=== PATIENT | male | born 1955 | race Caucasian/White ===

== ENCOUNTER 2019-08-01 09:17 | Emergency (ER) | payer MEDICARE ==
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
--- OUTSIDE RECORDS SUMMARY | 2019-08-01 09:27 | XMS REPORT | Summary of Care ---
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 Jew Admit Date: 06/22/2019 Referrals: Referral From: Rounding On Unit Referral To: Mariam Marie Contact Information: None Spiritual Care Assessment Spouse/Significant Other Name/Relationship: None Assessed Need for Visit: Spiritual Companionship Patient Description: Calm, Accepting, At Peace, Hope-filled Spiritual/Cultural/Social Issues Assessment: Had a good conversation with Etienne. He was sitting up smiling and in good spirits. He said that the staff is taking good care of him and he's doing well. Told him he's in good hands here, he agreed. Etienne talked a lot about his who has passed on. Talked about her life, meeting her and the time they spent together. He really misses her a lot. Can't imagine how difficult it must be.Told him she's right here in his heart and always with him. His personal Guardian Castillo looking over him and he agreed. He said he feels her everyday. When he has a free moment reach out in prayer and give thanks to God for his presence as well as the blessing of her presence. He said he prays everyday and is thankful. Said a prayer and a blessing. He was thankful for our visit. Spiritual Care Intervention: [facility], Explore/Affirm [place], Identify/ Encourage Coping, Prayer, Provide Ministry of Presence, Supportive Listening Spiritual Outcomes - Patient: Expressed feelings, [place] comforted, accompanied, [place] heard, valued, affirmed, Pastoral relationship established Spiritual Outcomes - Family: Not available for assessment Spiritual Care Plan Goal Goal: Identify and support relationship with [facility]. Outcome: Spiritual Care Follow Up Follow Up: Routine visit Rachel Blair , PT - 06/29/2019 9:28 AM ESTPhysical Therapy Acute Care Treatment Note Medical Diagnosis: Syncope Diabetic ulcer of toe of right foot associated with type 2 diabetes mellitus ? OSTEOMYELITIS RIGHT 3RD TOE Osteomyelitis of ankle or foot, right, acute Procedure(s): 06/25 AMPUTATION RIGHT THIRD TOE Rehabilitation Precautions/Restrictions: Ambulate with assist. Weight bearing as tolerated with forefoot off-loading shoe. Goal Review Visit Number: 3 SUBJECTIVE Patient Report: Reports he is feeling "fine." Pain: Patient has no complaints of pain currently. Pain Medication Today: no. OBJECTIVE General Observation: sitting up at edge of bed Vital Signs: Stable. Range of Motion:No change observed. Strength:No change observed. Skin Integrity Screen: Post surgical jf wrapping on RLE, toe amputation.,PIV ventral surface of L forearm Functional Status: Transfers: Patient transferred sit to/from stand with independence. Bed Mobility: Not assessed. Locomotion/Wheelchair: Not applicable for this patient at this time. Locomotion/Gait/Ambulation: Patient was modified independent with gait/ambulation for 180 feet . Patient requires the following assistive device(s): Rolling walker. R forefoot relief shoe . Gait belt. steady gait, slow tim Stairs: Patient was modified independent for up/down 5 steps . Patient used the following equipment: Unilateral Railing. Axillary Crutches. step to gait pattern Patient also was modified independent for up/down 5 steps . Patient used the following equipment: Unilateral Railing. facing railing with both hands on R ascending railing, step to gait pattern Outcome Measures: [facility] "6 Clicks" Basic Mobility Inpatient Short Form: Turning over in bed: A little difficulty (3) Sitting down on and standing up from a chair with arms: No difficulty (4) Moving from lying on back to sitting on the side of the bed: No difficulty (4) Moving to and from a bed to a chair (including a wheelchair): No help (4) Walking in hospital room: No help (4) Climbing 3-5 steps with a railing: A little help (3) Raw Score 22 /24. Interventions: Gait Training: Assesment for independence on level surfaces with wheeled walker and stair climbing. Instruction on using crutch and railing and then using both hands on one railing only to go up/down steps. Patient prefers to use one railing with both hands to using crutch and railing, flet it was easier. He will have someone that will help him into the home and bring his walker up. Education: Mode of education provided: Explanation. Audience: Patient. Education Provided: safe mobility including pausing between position changes, pacing himself when he first go es home, using light when getting up at night, keeping pathways free of clutter, having someone assist him into house to carry his walker up. . Response: Verbalized understanding. ASSESSMENT Response to Visit: The session was tolerated well. Demonstrated independence on stairs with rail. Patient demonstrated independent ambulation on level surfaces. Call ahmadi was in patient's reach at end of session. Pain: Patient has no complaints of pain currently. Goal review: Short Term Goals: 1. In 1 week, pt will perform supine to sit with independence. Status: met 2. In 1 week, pt will perform all functional transfers with modified independence and least restrictive device. Status: met Bicycle Racer Goals: 1. In 2 weeks, pt will be able to ambulate 150 feet with modified independence and least restrictive device. Status: met, ambulating with modified independent with wheeled walker and forefoot relief shoe 2. In 2 weeks, pt will perform 5 stairs with modified independence and least restrictive device. Status: met, modified independent going up/down steps with one railing Changes in or Continuation of Plan of Care: No further Physical Therapy is warranted at this time. Goals have been MET. PLAN Treatment Frequency, Duration and Interventions: Physical Therapy services are discontinued at this time secondary to: Goals have been MET. Equipment Provided: None issued this visit. Equipment Recommended: Rolling walker. Recommended Physical Therapy Follow Up: Upon acute care discharge, the following is currently recommended: None at this time. Recommended Consults: None currently. Development of Plan of Care: Participants included: Patient. Medical provider. Visit Number: Today's visit is number 3 Program: General Medicine (Therapist may be reached on Thuuz) SESSION: Duration: 18 CHARGES: 39985 - CHARGE - PT GAIT TRNG - 15 MIN 1 Units - GENERAL MEDICINE VISIT 1 Units Total treatment minutes: 18.00 Minutes Electronically Signed by: Rachel Vázquez PT, PT 06/29/2019 9:41:42 AM Ning Randle PA - 06/29/2019 9:11 AM EST Vascular Surgery Progress note POD: 4 Days Post-Op 06/29/19 Procedure: Procedure(s) (LRB): AMPUTATION RIGHT THIRD TOE (Right) Subjective: denies pain in the right foot. Feels well. Has walked with PT up and down stairs and with rolling walker and forefoot offloading shoe and doing well. No fever or chills. Tolerating antibiotics. Objective: Vital Sign Min/Max (last 24 hours) Value Min Max Temp 36.4 C (97.5 F) 36.8 C (98.2 F) Pulse (!) 52 (!) 58 Resp 18 18 BP: Systolic 99 146 BP: Diastolic 59 78 SpO2 94 % 99 % Intake/Output Summary (Last 24 hours) at 06/29/2019 0911 Last data filed at 06/29/2019 0826 Gross per 24 hour Intake 1556.53 ml Output 3500 ml Net -1943.47 ml Physical Exam: General: Pleasant, alert, awake, no acute distress Breathing unlabored Peripheral pulses: 2+ and symmetric Palpable pedal pulses bilaterally Feet: warm, good capillary refill. Right third toe amputation incision healing primarily with intact sutures and no erythema. Extremities: edema controlled by compression, no ulcers, gangrene or trophic changes and no tenderness or erythema. Active Problems: Syncope Diabetic ulcer of toe of right foot associated with type 2 diabetes mellitus Distal infected bone grew enterococcus and staphylococcus aureus- was treated 48 hours with Zyvox and Zosyn then the remaining 2 days on Zosyn alone. Bone pathology showed no osteomyelitis at the bonemargin and the proximal margin did not grow any bacteria. Assessment/Plan: 64 y.o. male, s/pProcedure(s): AMPUTATION RIGHT THIRD TOE Hospital Day: 8, 4 Days Post-Op Right third toe amputation healing primarily with no drainage. Lymphedema well controlled with the aces for compression. Medicine planning to discharge to home today with visiting nursing. Will follow up in 3 weeks for suture removal. Instructions for home and dressing change in the chart. Ning Madison RPA-C B - [phone] C- [phone] Department of Vascular Surgery Zeina Ambrosio PTA - 06/28/2019 3:55 PM ESTPhysical Therapy Acute Care Treatment Note Medical Diagnosis: Syncope Diabetic ulcer of toe of right foot associated with type 2 diabetes mellitus ? OSTEOMYELITIS RIGHT 3RD TOE Osteomyelitis of ankle or foot, right, acute Procedure(s): 06/25 AMPUTATION RIGHT THIRD TOE Rehabilitation Precautions/Restrictions: Ambulate with assist. Weight bearing as tolerated with forefoot off-loading shoe. Goal Review Visit Number: 2 SUBJECTIVE Patient Report: "I am doing good."; Pain: Patient has no complaints of pain currently. Pain Medication Today: no. OBJECTIVE General Observation: Sitting up in bedside recliner No chair alarm noted at start of session. Vital Signs: Stable. Range of Motion:No change observed. Strength:No change observed. Skin Integrity Screen: Post surgical jf wrapping on RLE, toe amputation. Functional Status: Transfers: Patient transferred sit to/from stand requiring stand by assistance. Patient used the following equipment: Arms of chair. Patient used the following equipment: rolling walker. Pt is able to come forward in the chair. Pt has forefoot offloading shoe on RLE. Pt is able to come to standing by pushing up from arms of chair. Bed Mobility: Not assessed. Locomotion/Wheelchair: Not applicable for this patient at this time. Locomotion/Gait/Ambulation: Patient was stand by assist with gait/ambulation for 200 ft . Patient requires the following assistive device(s): Rolling walker. Gait belt. RLE off loading shoe . Pt ambulates with rolling walker and R off loading shoe. Pt did not show signs of altered balance on level. Pt was able to ambulate in hallway in straight path and able to make turns. Pt reaches back for chair efore coming to sit. Right decreased step length. Wide base of support. Stairs: Patient was minimal assist of 1 person for 3 . Patient used the following equipment: Unilateral Railing. Axillary Crutches. Pt used RLE off loading shoe. Pt needs assist to posiition axillary crutch on L side. Pt follows cues for sequence in ascending and descending on stair. Pt uses R rail. Pt given cues to lead with LLE. Cues provided for keeping axillary crutch with RLE. Pt able to accomplish 3 stairs with contact to minimal assist of one person. Outcome Measures: Recently assessed, not applicable at this time. Interventions: Gait Training: Ambulation on level with RLE off loading shoe and rolling walker. Pt ambulates with wide base of support. Pt able to manage gait through doorway. Pt given cues for maneuvering around obstacles. Pt encouraged to take equal steps. Therapeutic Activities: Stair training with L axillary crutch, Pt requires cues for sequence on stairs. Pt used R railing. Pt backs down stair with cues. Pt was able to repeat tasks. Therapeutic Exercise: Seated hip flexion, knee extension and ankle pumps on LLE. Sit to stands. Education: Mode of education provided: Demonstration. Explanation. Audience: Patient. Nurse. Education Provided: Posture correction. Fall precautions. Response: Indicates understanding. Needs practice/reinforcement. Requires cues (auditory/physical). ASSESSMENT Response to Visit: The session was tolerated well. Pain unchanged. Demonstrated safety on stairs with rail with assist. Patient demonstrated good exercise technique. Call ahmadi was in patient's reach at end of session. Pain: Patient has no complaints of pain currently. Goal review: During this session, pt did not perform supine transfer. Pt performs functional transfers with contact guard. Pt accomplished 3 stairs x 2 trials. Changes in or Continuation of Plan of Care: Patient will benefit from continued therapy to achieve planned goals. PLAN Treatment Frequency, Duration and Interventions: Restorative Physical Therapy is recommended for 5x/week for 2 weeks Treatment is to include: Gait Training. Neuromuscular Re-education. Therapeutic Activity. Therapeutic Exercise. Equipment Provided: None issued this visit. Equipment Recommended: axillary crutch on L . Recommended Physical Therapy Follow Up: Upon acute care discharge, the following is currently recommended: pending progress Home Physical Therapy. home vs. rehab Recommended Consults: None currently. Development of Plan of Care: Participants included: Nurse. Patient. Visit Number: Today's visit is number 2 Program: Amputation (Therapist may be reached on Thuuz) SESSION: Duration: 40 CHARGES: 57345 - CHARGE - PT GAIT TRNG - 15 MIN 1 Units [id number] - CHARGE - PT THER EX - 15 MIN 1 Units 00063 - CHARGE - PT THERAPEUTIC ACTIVITIES - 15 MIN 1 Units - AMPUTEE VISIT 1 Units Total treatment minutes: 40.00 Minutes Electronically Signed by: Gabi Regalado MEDICAL ARTIST, 06/28/2019 4:05:39 PM Kevin Culver MD - 06/28/2019 9:30 AM EST DAILY PROGRESS NOTE SUBJECTIVE: No interval change in his condition. Is waiting for surgery to change bandage. Soc serv working on getting him home with sufficient help. Cultures came back showing Staph MSSA and enterococcus. Review of Systems Constitutional: Negative. Negative for chills and fever. Had iv site change overnite. Feels good HENT: Negative. Eyes: Negative. Respiratory: Negative. Negative for cough and shortness of breath. Cardiovascular: Negative. Negative for chest pain and leg swelling. Gastrointestinal: Negative. Negative for abdominal pain, constipation, diarrhea , nausea and vomiting. Genitourinary: Negative. Negative for dysuria. Musculoskeletal: Negative. Negative for myalgias. Skin: Negative. Neurological: Negative. Endo/Heme/Allergies: Negative. Psychiatric/Behavioral: Negative. OBJECTIVE: Vitals: 06/28/19 0433 06/28/19 0630 06/28/19 0700 06/28/19 0755 BP: 112/68 141/65 BP Location: Left arm Left arm Patient Position: Lying Lying Pulse: 77 (!) 57 64 Resp: 18 18 Temp: 36.8 C 36.7 C TempSrc: Oral Oral SpO2: 95% 96% Weight: 135.2 kg (298 lb 1 oz) Height: I/O last 3 completed shifts: In: 2825.8 [P.O.:2010; IV Piggyback:815.8] Out: 5375 [Urine:5375] I/O this shift: In: 535 [P.O.:535] Out: - No data recorded Physical Exam Constitutional: He is oriented to person, place, and time and well-developed, well-nourished, and inno distress. Cardiovascular: Normal rate, regular rhythm and intact distal pulses. Exam reveals no gallop and no friction rub. No murmur heard. Pulmonary/Chest: Effort normal and breath sounds normal. No respiratory distress. He has no wheezes. Abdominal: Soft. Bowel sounds are normal. Musculoskeletal: Normal range of motion. General: Edema (1+ pitting b/l LE ) present. Comments: Dressing RLE Neurological: He is alert and oriented to person, place, and time. Skin: Skin is warm and dry. Nursing note and vitals reviewed. LABS: Recent Labs Lab 06/22/19 0701 HCT 36.3* HGB 12.6* MCH 31.0 MCHC 34.6 MCV 89.7 PLT 244 RDW 13.4 WBC 7.5 Recent Labs Lab 06/24/19 1239 06/25/19 0600 06/26/19 0427 NA 133* 137 137 K 4.2 3.7 4.3 CL 94* 98 100 BICARBONATE 29 27 31* GLUCOSE 191* 169* 164* BUN 20 23 19 CREATININE 0.82 0.80 0.88 BCR 25 28 22 GFRAA >90 >90 >90 GFRNONAA >90 >90 90 Lab Results Component Value Date CALCIUM 9.2 06/26/2019 PHOS 2.7 04/08/2016 MEDICATIONS: Scheduled Meds: aspirin 81 mg Oral Daily atorvastatin 10 mg Oral QPM enoxaparin 40 mg Subcutaneous Daily furosemide 40 mg Oral BID gabapentin 300 mg Oral TID insulin lispro 1-16 Units Subcutaneous 3 x Daily with Meals insulin NPH-insulin regular 40 Units Subcutaneous Two times daily before breakfast and dinner linezolid 600 mg Intravenous Q12H metoprolol 75 mg Oral Daily piperacillin-tazobactam 3.375 g Intravenous Q8H polyethylene glycol 17 g Oral Daily rOPINIRole 1 mg Oral Nightly Continuous Infusions: PRN Meds:.HYDROcodone-acetaminophen OR HYDROcodone-acetaminophen OR acetaminophen (TYLENOL) tablet, dextrose, glucagon (human recombinant), glucose ASSESSMENT: Mr. Etienne Ramachandran is a 64 y.o. year old male who is here for Active Problems: Syncope Diabetic ulcer of toe of right foot associated with type 2 diabetes mellitus PLAN Syncope Likely due to cardiac arrhythmia, but pt adement: no defibrillator or vest! Acute on chronic diastolic CHF -worsening swelling past couple of days, takes lasix 80 mg po daily at home -diuresed IV initially. Resume home dosing now. -2d echo with LV hypertrophy, no RWMA. CXR with congestion -HF education, daily weights, low na diet Monomorphic ventricular tachycardia -Noted on tele, 19 beat run woke him from sleep, history of a cardiac arrhythmia that states has never been DX on holter. Mag and K wnl, TSH wnl. -Cardiology consulted, patient is high risk for sudden cardiac as he has had these episodes for years, pre-syncope. -Cardiology would like for him to have LifeFest prior to DC, and eventual follow up with EP and possible ICD. -Metoprolol increased to 75 mg po daily. Patient is currently refusing LifeVest and ICD. He understands the recommendations and possibility of sudden cardiac if he does not have these, but continues to refuse. He wants to be full code. Restless leg syndrome -recently ran out of requip. Continue here and on DC, will need refills. 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 Chronic right third toe osteo, s/p amputation -Follows with wound clinic. Ill d/c Zyvoxx as culture shows MSSA STAPH. Above assessment and plan discussed with attending below. DVT Prophylaxis: low molecular weight heparin GI Prophylaxis:Not Indicated Diet: Dietary Orders (From admission, onward) Start Ordered 06/25/19 0932 Diet Age: Adult; Diet: Modified; Modifier: Consistent Carbohydrate; Consistent Carbohydrate: Adult-Moderate DIET EFFECTIVE MIDNIGHT Question Answer Comment Age Adult Diet Modified Modifier Consistent Carbohydrate Consistent Carbohydrate Adult-Moderate 06/25/19 0931 Code status: Full Code Estimated date of discharge: 6 TIME SPENT: 20 min Hospital Medicine [facility] 06/28/2019 9:31 AM Kevin Mello MD Kevin Culver MD - 06/27/2019 10:03 AM EST DAILY PROGRESS NOTE SUBJECTIVE: Doing ok some minimal pain, but needs help taking care of foot on a daily bases.. Review of Systems Constitutional: Negative. Negative for chills and fever. Feels good overall, but is worried about care after d/c HENT: Negative. Eyes: Negative. Respiratory: Negative. Negative for cough and shortness of breath. Cardiovascular: Negative. Negative for chest pain and leg swelling. Gastrointestinal: Negative. Negative for abdominal pain, constipation, diarrhea , nausea and vomiting. Genitourinary: Negative. Negative for dysuria. Musculoskeletal: Negative. Negative for myalgias. Skin: Negative. Neurological: Negative. Endo/Heme/Allergies: Negative. Psychiatric/Behavioral: Negative. OBJECTIVE: Vitals: 06/27/19 0009 06/27/19 0700 06/27/19 0733 06/27/19 0811 BP: 135/72 103/58 113/66 BP Location: Left arm Right arm Patient Position: Sitting Lying Pulse: 61 (!) 52 62 Resp: 17 16 Temp: 36.5 C 36.3 C TempSrc: Oral Oral SpO2: 95% 92% Weight: 134 kg (295 lb 8 oz) Height: I/O last 3 completed shifts: In: 900 [P.O.:900] Out: 1575 [Urine:1575] I/O this shift: In: 540 [P.O.:540] Out: - No data recorded Physical Exam Constitutional: He is oriented to person, place, and time and well-developed, well-nourished, and inno distress. Cardiovascular: Normal rate, regular rhythm and intact distal pulses. Exam reveals no gallop and no friction rub. No murmur heard. Pulmonary/Chest: Effort normal and breath sounds normal. No respiratory distress. He has no wheezes. Abdominal: Soft. Bowel sounds are normal. Musculoskeletal: Normal range of motion. General: Edema (1+ pitting b/l LE ) present. Comments: Dressing RLE Neurological: He is alert and oriented to person, place, and time. Skin: Skin is warm and dry. Nursing note and vitals reviewed. LABS: Recent Labs Lab 06/22/19 0701 HCT 36.3* HGB 12.6* MCH 31.0 MCHC 34.6 MCV 89.7 PLT 244 RDW 13.4 WBC 7.5 Recent Labs Lab 06/24/19 1239 06/25/19 0600 06/26/19 0427 NA 133* 137 137 K 4.2 3.7 4.3 CL 94* 98 100 BICARBONATE 29 27 31* GLUCOSE 191* 169* 164* BUN 20 23 19 CREATININE 0.82 0.80 0.88 BCR 25 28 22 GFRAA >90 >90 >90 GFRNONAA >90 >90 90 Lab Results Component Value Date CALCIUM 9.2 06/26/2019 PHOS 2.7 04/08/2016 MEDICATIONS: Scheduled Meds: aspirin 81 mg Oral Daily atorvastatin 10 mg Oral QPM enoxaparin 40 mg Subcutaneous Daily furosemide 40 mg Oral BID gabapentin 300 mg Oral TID insulin lispro 1-16 Units Subcutaneous 3 x Daily with Meals insulin NPH-insulin regular 40 Units Subcutaneous Two times daily before breakfast and dinner linezolid 600 mg Intravenous Q12H metoprolol 75 mg Oral Daily piperacillin-tazobactam 3.375 g Intravenous Q8H polyethylene glycol 17 g Oral Daily rOPINIRole 1 mg Oral Nightly Continuous Infusions: PRN Meds:.HYDROcodone-acetaminophen OR HYDROcodone-acetaminophen OR acetaminophen (TYLENOL) tablet, dextrose, glucagon (human recombinant), glucose ASSESSMENT: Mr. Etienne Ramachandran is a 64 y.o. year old male who is here for Active Problems: Syncope Diabetic ulcer of toe of right foot associated with type 2 diabetes mellitus PLAN Syncope Likely due to cardiac arrhythmia, but pt adement: no defibrillator or vest! Acute on chronic diastolic CHF -worsening swelling past couple of days, takes lasix 80 mg po daily at home -diuresed IV initially. Resume home dosing now. -2d echo with LV hypertrophy, no RWMA. CXR with congestion -HF education, daily weights, low na diet Monomorphic ventricular tachycardia -Noted on tele, 19 beat run woke him from sleep, history of a cardiac arrhythmia that states has never been DX on holter. Mag and K wnl, TSH wnl. -Cardiology consulted, patient is high risk for sudden cardiac as he has had these episodes for years, pre-syncope. -Cardiology would like for him to have LifeFest prior to DC, and eventual follow up with EP and possible ICD. -Metoprolol increased to 75 mg po daily. Patient is currently refusing LifeVest and ICD. He understands the recommendations and possibility of sudden cardiac if he does not have these, but continues to refuse. He wants to be full code. Restless leg syndrome -recently ran out of requip. Continue here and on DC, will need refills. DM 2 with intermediate insulin use -Continue NPH and SS. Chronic right third toe osteo, s/p amputation -Follows with wound clinic. Chronic osteo in the toe, has failed 3 OP ABX regimens. Saw ID last week, recommended IV ertapenem x 6 weeks but not covered so patient is not getting tx. -Right 3rd toe amp 06/25. Ambulate with PT with boot on . Initially patient did not want to wait for pathology and we sent in Linezolid x 7 days pending pathology to return. Copay is $3 incase he does leave. Worked with PT today and they are recommending home vs rehab pending progress. Will continue with PT here , pending pathology before DC. Will need follow up with Vasc on DC. Continue Zyvox and Zosyn for now. Above assessment and plan discussed with attending below. DVT Prophylaxis: low molecular weight heparin GI Prophylaxis:Not Indicated Diet: Dietary Orders (From admission, onward) Start Ordered 06/25/19 0932 Diet Age: Adult; Diet: Modified; Modifier: Consistent Carbohydrate; Consistent Carbohydrate: Adult-Moderate DIET EFFECTIVE MIDNIGHT Question Answer Comment Age Adult Diet Modified Modifier Consistent Carbohydrate Consistent Carbohydrate Adult-Moderate 06/25/19 0931 Code status: Full Code Estimated date of discharge: 5 TIME SPENT: 20 min Hospital Medicine [facility] 06/27/2019 10:03 AM Kevin Mello MD Daisy Tidwell RN - 06/26/2019 3:22 PM ESTPatient discussed in rounds, reviewed updates. Patient had his toe amp yesterday. He has off-loading boot and has worked with PT. Still needs to work on stairs, but will likely be able to DC with HomePT. He will also need SN. Per Ning[facility], dressing will be able to be changed every other day. Patient would like [facility], and they will be able to accommodate the dressing changes,as well as the PT. Will put order in Epic. chu, HALEIGH Escobedo - 06/26/2019 3:05 PM EST DAILY PROGRESS NOTE SUBJECTIVE: Pt seen and examined at bedside today. No pain today. No other complaints. Was initially eager to leave prior to pathologies returning but now worried about physical therapy and his mobility. Review of Systems Constitutional: Negative for chills and fever. Respiratory: Negative for cough and shortness of breath. Cardiovascular: Negative for chest pain and leg swelling. Gastrointestinal: Negative for abdominal pain, constipation, diarrhea, nausea and vomiting. Genitourinary: Negative for dysuria. Musculoskeletal: Negative for myalgias. OBJECTIVE: Vitals: 06/26/19 0600 06/26/19 0725 06/26/19 1043 06/26/19 1129 BP: 118/75 134/80 118/74 BP Location: Left arm Left arm Patient Position: Sitting Lying Pulse: (!) 57 60 (!) 56 Resp: 16 16 Temp: 36.3 C 36.3 C TempSrc: Oral Oral SpO2: 96% 96% Weight: 134.3 kg (296 lb 2 oz) Height: I/O last 3 completed shifts: In: 1730 [P.O.:1680; IV Piggyback:50] Out: 2375 [Urine:2375] No intake/output data recorded. No data recorded Physical Exam Constitutional: He is oriented to person, place, and time and well-developed, well-nourished, and inno distress. Cardiovascular: Normal rate, regular rhythm and intact distal pulses. Exam reveals no gallop and no friction rub. No murmur heard. Pulmonary/Chest: Effort normal and breath sounds normal. No respiratory distress. He has no wheezes. Abdominal: Soft. Bowel sounds are normal. Musculoskeletal: Normal range of motion. General: Edema (1+ pitting b/l LE ) present. Comments: Dressing RLE Neurological: He is alert and oriented to person, place, and time. Skin: Skin is warm and dry. LABS: Recent Labs Lab 06/22/19 0701 HCT 36.3* HGB 12.6* MCH 31.0 MCHC 34.6 MCV 89.7 PLT 244 RDW 13.4 WBC 7.5 Recent Labs Lab 06/24/19 1239 06/25/19 0600 06/26/19 0427 NA 133* 137 137 K 4.2 3.7 4.3 CL 94* 98 100 BICARBONATE 29 27 31* GLUCOSE 191* 169* 164* BUN 20 23 19 CREATININE 0.82 0.80 0.88 BCR 25 28 22 GFRAA >90 >90 >90 GFRNONAA >90 >90 90 Lab Results Component Value Date CALCIUM 9.2 06/26/2019 PHOS 2.7 04/08/2016 MEDICATIONS: Scheduled Meds: aspirin 81 mg Oral Daily atorvastatin 10 mg Oral QPM enoxaparin 40 mg Subcutaneous Daily furosemide 40 mg Oral BID gabapentin 300 mg Oral TID insulin lispro 1-16 Units Subcutaneous 3 x Daily with Meals insulin NPH-insulin regular 40 Units Subcutaneous Two times daily before breakfast and dinner linezolid 600 mg Intravenous Q12H metoprolol 75 mg Oral Daily piperacillin-tazobactam 3.375 g Intravenous Q8H polyethylene glycol 17 g Oral Daily rOPINIRole 1 mg Oral Nightly Continuous Infusions: PRN Meds:.HYDROcodone-acetaminophen OR HYDROcodone-acetaminophen OR acetaminophen (TYLENOL) tablet, dextrose, glucagon (human recombinant), glucose ASSESSMENT: Mr. Etienne Ramachandran is a 64 y.o. year old male who is here for Active Problems: Syncope Diabetic ulcer of toe of right foot associated with type 2 diabetes mellitus PLAN Syncope -Syncopal episode Saturday night, started OTC restless leg med 2-3 days prior, had been feeling lightheaded/whoozy since, leading to syncopal episode -Carotid doppler neg. 2D echo with diastolic dysfunction, no RWMA. Orthostatics neg. -Cardiology consulted for pt with symptomatic VT, history of arrythmias. Recommending life vest and possible ICD and EP follow up as OP, after toe amp. Patient is refusing these interventions. Wantsto remain full code. Acute on chronic diastolic CHF -worsening swelling past couple of days, takes lasix 80 mg po daily at home -diuresed IV initially. Resume home dosing now. -2d echo with LV hypertrophy, no RWMA. CXR with congestion -HF education, daily weights, low na diet Monomorphic ventricular tachycardia -Noted on tele, 19 beat run woke him from sleep, history of a cardiac arrhythmia that states has never been DX on holter. Mag and K wnl, TSH wnl. -Cardiology consulted, patient is high risk for sudden cardiac as he has had these episodes for years, pre-syncope. -Cardiology would like for him to have LifeFest prior to DC, and eventual follow up with EP and possible ICD. -Metoprolol increased to 75 mg po daily. Patient is currently refusing LifeVest and ICD. He understands the recommendations and possibility of sudden cardiac if he does not have these, but continues to refuse. He wants to be full code. Restless leg syndrome -recently ran out of requip. Continue here and on DC, will need refills. DM 2 with intermediate insulin use -Continue NPH and SS. Chronic right third toe osteo, s/p amputation -Follows with wound clinic. Chronic osteo in the toe, has failed 3 OP ABX regimens. Saw ID last week, recommended IV ertapenem x 6 weeks but not covered so patient is not getting tx. -Right 3rd toe amp 06/25. Ambulate with PT with boot on . Initially patient did not want to wait for pathology and we sent in Linezolid x 7 days pending pathology to return. Copay is $3 incase he does leave. Worked with PT today and they are recommending home vs rehab pending progress. Will continue with PT here , pending pathology before DC. Will need follow up with Vasc on DC. Continue Zyvox and Zosyn for now. Above assessment and plan discussed with attending below. DVT Prophylaxis: low molecular weight heparin GI Prophylaxis:Not Indicated Diet: Dietary Orders (From admission, onward) Start Ordered 06/25/19 0932 Diet Age: Adult; Diet: Modified; Modifier: Consistent Carbohydrate; Consistent Carbohydrate: Adult-Moderate DIET EFFECTIVE MIDNIGHT Question Answer Comment Age Adult Diet Modified Modifier Consistent Carbohydrate Consistent Carbohydrate Adult-Moderate 06/25/19 0931 Code status: Full Code Estimated date of discharge: 4 TIME SPENT: 20 min Some portions of note may be copied from previous note during this admission for continuity of patient care. Details reviewed and edited as appropriate. ~~~ Shania Urena PA-C [facility] 06/26/2019 3:05 PM Kevin Mello MD Associated attestation - Kevin Mello MD - 06/26/2019 4:55 PM CRISTINA saw and evaluated the patient and discussed the history, physical exam, assessment and plan with the physician mobile phone salesperson and agree with the findings and plan as documented in the note above with any additions made noted here: Did not feel he was ready to be by himself. Total time:25 min Kevin Mello MD Hospitalist [facility] Ning Madison PA - 06/26/2019 11:44 AM EST Vascular Surgery Progress note POD: 1 Day Post-Op 06/26/19 Procedure: Procedure(s) (LRB): AMPUTATION RIGHT THIRD TOE (Right) Subjective: States he feels well, tolerating antibiotics without SE. Denies pain in the right foot. Has not been up on the forefoot offloading shoe yet with physical therapy. Denies chest pain shortness of breath, abdominal pain, nausea or vomiting. Objective: Vital Sign Min/Max (last 24 hours) Value Min Max Temp 36.3 C (97.3 F) 36.7 C (98.1 F) Pulse (!) 54 67 Resp 16 17 BP: Systolic 112 143 BP: Diastolic 64 80 SpO2 91 % 99 % Intake/Output Summary (Last 24 hours) at 06/26/2019 1144 Last data filed at 06/26/2019 0900 Gross per 24 hour Intake 1730 ml Output 2350 ml Net -620 ml Afebrile Physical Exam: General: alert, awake, no acute distress, anxious and irritable. Appropriately answers questions, Lungs: breathing unlabored Peripheral pulses: 2+ and symmetric pedal pulses palpable Feet: warm, good capillary refill, dry cracking heels, onychomycosis and right third toe amputatation incison healing primarily. Sutures intact without drainage. Extremities: no edema edema 1+ bilaterally, dry scaling skin, and extremities normal, atraumatic, no cyanosis Lab Results Component Value Date WBC 7.5 06/22/2019 HGB 12.6 (L) 06/22/2019 HCT 36.3 (L) 06/22/2019 MCV 89.7 06/22/2019 PLT 244 06/22/2019 Active Problems: Syncope Diabetic ulcer of toe of right foot associated with type 2 diabetes mellitus Assessment/Plan: 64 y.o. male, s/pProcedure(s): AMPUTATION RIGHT THIRD TOE Hospital Day: 5, Day 1 Post-Op Amputation incision healing appropriately. Edema controlled with compression and elevation. "infected distal toe bone culture" is the infected osteomyelitis bone for the purpose of antibiotic selection. The infected bone is growing E coli and Staph aureus but sensitivities are pending. Proximal bone culture and bone pathology pending but no growth. Needs to ambulate with PT and will need a visiting nurse because he cannot reach the foot to do any dressing changes. follow up appointments made in the Epic chart and discharge instructions for home pended. Continue Zyvox and Zosyn. Proximal Bone pathology and proximal microbiology will need to be followed up for completion of treatment. Ning Madison RPA-C B - [phone] C- [phone] Department of Vascular Surgery Alena Wilson RN - 06/25/2019 10:19 PM ESTAssumed care of pt from [phone], read and agree with previous resistor coater, no changes noted. Pt resting in bed with foot elevated on 3 pillows, and call ahmadi in reach at this time. Will continue tomonitor. Shania Rocha PA - 06/25/2019 11:55 AM EST DAILY PROGRESS NOTE SUBJECTIVE: Pt seen and examined at bedside today. No complaints today. No pain currently. Toe amp earlier this morning. Review of Systems Constitutional: Negative for chills and fever. Respiratory: Negative for cough and shortness of breath. Cardiovascular: Positive for leg swelling. Negative for chest pain. Gastrointestinal: Negative for abdominal pain, diarrhea, nausea and vomiting. Genitourinary: Negative for dysuria. Musculoskeletal: Negative for joint pain and myalgias. OBJECTIVE: Vitals: 06/25/19 0856 06/25/19 0900 06/25/19 0905 06/25/19 0910 BP: 108/70 115/65 115/60 114/73 BP Location: Right arm Right arm Patient Position: Lying Lying Pulse: 63 63 (!) 58 Resp: 16 14 13 15 Temp: 36.4 C 36.6 C TempSrc: Oral Oral SpO2: 99% 99% 95% 99% Weight: Height: I/O last 3 completed shifts: In: 600 [P.O.:600] Out: 1675 [Urine:1675] I/O this shift: In: 680 [P.O.:180; I.V.:500] Out: - O2 Flow Rate (L/min) Av L/min Min: 4 L/min Max: 4 L/min Physical Exam Constitutional: He is oriented to person, place, and time and well-developed, well-nourished, and inno distress. Cardiovascular: Normal rate and regular rhythm. Exam reveals no gallop and no friction rub. No murmur heard. Pulmonary/Chest: Effort normal and breath sounds normal. No respiratory distress. He has no wheezes.He has no rales. Abdominal: Soft. Bowel sounds are normal. He exhibits no distension. There is no abdominal tenderness. Musculoskeletal: Normal range of motion. General: Edema (1+ pitting b/l LE ) present. Neurological: He is alert and oriented to person, place, and time. Skin: Skin is warm and dry. Cast to E LABS: Recent Labs Lab 06/22/19 0701 HCT 36.3* HGB 12.6* MCH 31.0 MCHC 34.6 MCV 89.7 PLT 244 RDW 13.4 WBC 7.5 Recent Labs Lab 06/23/19 0815 06/24/19 1239 06/25/19 0600 NA 133* 133* 137 K 5.2* 4.2 3.7 CL 99 94* 98 BICARBONATE 22 29 27 GLUCOSE 151* 191* 169* BUN 19 20 23 CREATININE 0.67* 0.82 0.80 BCR 29 25 28 GFRAA >90 >90 >90 GFRNONAA >90 >90 >90 Lab Results Component Value Date CALCIUM 9.2 06/25/2019 PHOS 2.7 04/08/2016 MEDICATIONS: Scheduled Meds: aspirin 81 mg Oral Daily atorvastatin 10 mg Oral QPM enoxaparin 40 mg Subcutaneous Daily [START ON 06/26/2019] furosemide 60 mg Oral Daily gabapentin 300 mg Oral TID insulin lispro 1-8 Units Subcutaneous 3 x Daily with Meals insulin NPH-insulin regular 40 Units Subcutaneous Two times daily before breakfast and dinner linezolid 600 mg Intravenous Q12H metoprolol 75 mg Oral Daily piperacillin-tazobactam 3.375 g Intravenous Q8H [START ON 06/26/2019] polyethylene glycol 17 g Oral Daily rOPINIRole 1 mg Oral Nightly Continuous Infusions: PRN Meds:.HYDROcodone-acetaminophen OR HYDROcodone-acetaminophen OR acetaminophen (TYLENOL) tablet, dextrose, glucagon (human recombinant), glucose ASSESSMENT: Mr. Etienne Ramachandran is a 64 y.o. year old male who is here for Active Problems: Syncope Diabetic ulcer of toe of right foot associated with type 2 diabetes mellitus PLAN Syncope -Syncopal episode Saturday night, started OTC restless leg med 2-3 days prior, had been feeling lightheaded/whoozy since, leading to syncopal episode -Carotid doppler neg. 2D echo with diastolic dysfunction, no RWMA. Orthostatics neg. -Cardiology consulted for pt with symptomatic VT, history of arrythmias. Recommending life vest and possible ICD and EP follow up as OP, after toe amp. Acute on chronic diastolic CHF -worsening swelling past couple of days, takes lasix 80 mg po daily at home -diuresed IV initially. Resume home dosing now. -2d echo with LV hypertrophy, no RWMA. CXR with congestion -HF education, daily weights, low na diet Monomorphic ventricular tachycardia -Noted on tele, 19 beat run woke him from sleep, history of a cardiac arrhythmia that states has never been DX on holter. Mag and K wnl, TSH wnl. -Cardiology consulted, patient is high risk for sudden cardiac as he has had these episodes for years, pre-syncope. -Cardiology would like for him to have LifeFest prior to DC, and eventual follow up with EP and possible ICD. -Metoprolol increased to 75 mg po daily. Patient is currently refusing LifeVest and ICD. He understands the recommendations and possibility of sudden cardiac if he does not have these, but continues to refuse. Restless leg syndrome -recently ran out of requip. Continue here and on DC, will need refills. DM 2 with intermediate insulin use -Continue NPH and SS. Chronic right third toe osteo -Follows with wound clinic. Chronic osteo in the toe, has failed 3 OP ABX regimens. Saw ID last week, recommended IV ertapenem x 6 weeks but not covered so patient is not getting tx. -Right 3rd toe amp 06/25. Bedrest 24 hours. Ambulation starting Saturday, forefoot offloading shoe. Await bone culture and path. Start Zyvox and Zosyn. Above assessment and plan discussed with attending below. DVT Prophylaxis: low molecular weight heparin GI Prophylaxis:Not Indicated Diet: Dietary Orders (From admission, onward) Start Ordered 06/25/19 0932 Diet Age: Adult; Diet: Modified; Modifier: Consistent Carbohydrate; Consistent Carbohydrate: Adult-Moderate DIET EFFECTIVE MIDNIGHT Question Answer Comment Age Adult Diet Modified Modifier Consistent Carbohydrate Consistent Carbohydrate Adult-Moderate 06/25/19 0931 Code status: Full Code Estimated date of discharge: tbd 3 TIME SPENT: 20 min Some portions of note may be copied from previous note during this admission for continuity of patient care. Details reviewed and edited as appropriate. ~~~ Shania Urena PA-C [facility] Medicine [facility] 06/25/2019 11:55 AM Kevin Mello MD Associated attestation - Kevin Mello MD - 06/25/2019 12:37 PM CRISTINA saw and evaluated the patient and discussed the history, physical exam, assessment and plan with the physician mobile phone salesperson and agree with the findings and plan as documented in the note above with any additions made noted here: If he looks good tomorrow could be f/u as out-patient . He wants to go home and not be bothered. Total time: 25 min Kevin Mello MD Hospitalist [facility] Samm Morgan PT - 06/25/2019 9:15 AM ESTPhysical Therapy Acute Care Missed Visit Note Location: bedside Attempted to visit patient for therapy, but was unable for the following reasons: Patient went to OR. (Therapist may be reached on Vocera) SESSION: Duration: 0 CHARGES: - ORDER - PHYSICAL THERAPY CONSULT 1 Units Total treatment minutes: 0.00 Minutes Electronically Signed by: Samm Morgan PT, DPT, 06/25/2019 9:16:22 AM [email or web address], Can Rodney MD - 06/25/2019 7:43 AM EST64 yo man with R 3 toe tip osteo Plan R 3 toe amp with cultures Pt agreeable to toe amp Pt is being followed by Dr Norman who is guiding antibiotic therapy in this situation To OR today Risks of bleeding, infection, , ID, stroke, all discussed with patient in plain language. He is declining further non-operative/medical therapy Daisy Tidwell RN - 06/24/2019 4:07 PM ESTCase Management Screen & Assessment Patient's Name: Etienne Ramachandran Date of : 1955 Age: 64 y.o. Gender: male Attending Provider: Kevin Mello MD Admitting Diagnosis: Syncope [R55] Admission Date and Time: 06/22/2019 5:18 AM High Risk Criteria - MEDICAL ARTIST/Upon Arrival MEDICAL ARTIST-Type of Residence: Private residence MEDICAL ARTIST- Home Care Services: No Limited Home Supports/Lives Alone?: Yes Multi trauma/Critical care admit?: No Head/Spinal cord injury?: No Self pay/No prescription plan?: No Active with homecare?: No Multiple ED visits?: No Related/Unplanned readmission within 30 days?: No Complex/New medical issues: Syncope/Osteo of toe Relevant comorbidities: DM, toe wound, CHF, HTN, bovine valve CM Screen Outcome Utility Plant Operative Screen Outcome: Meets high risk criteria for active case therapist intervention Important message (Medicare rights) given?: Yes Date Given: 06/22/19 CM Chart Review Notice of Privacy Practice Signed?: Yes Self Pay: No Prescription Plan?: Yes (comment) Pt. Pharmacy & Phone # : [facility] MEDICAL ARTIST: Functional/Environmental Assessment Came from Rehab/SNF, plan to return?: No Brief physical/psychosocial summary: Lives alone Bathing: Independent Dressing: Independent Toileting: Independent Medication administration: Independent Transfers: Independent Ambulation: Independent Meal preparation: Independent Number of stairs into home: 5 Number of stairs to bathroom: 0 Number of stairs to bedroom: 0 Durable Medical Equipment (DME): Cane Case Management Review Date CM re-review date needed?: Yes Case Management Review Date: 06/29/19 Discharge Assessment Patient/family informed of need for discharge planning?: Yes Patient expects to be discharged to:: home vs rehab Living Arrangements: Alone Support Systems: Friends/neighbors Type of Residence: Private residence Note: Met with patient at bedside, explained role of CM. Patient admitted with syncope. He hd a toe wound MEDICAL ARTIST, and was found to have osteo. Vascular surgery is recommending amputation of that toe. Patient has been experiencing runs of v- tach while here in the monitor. Cardiology is recommending life vest and possible ICD and EP follow up as OP, after toe amp. At this time, he is refusing to go this course. He will have the toe surgery (scheduled for tomorrow am). Cardiology will continue to consultafter the toe surgery. Patient lives alone. His lived at [facility] for several years before she a year and ahalf ago. He states that he "lived there every day to help care for her". Discussed discharge plans,possible rehab, Homecare, etc. Will continue to follow for a safe DC plan. Rody Verdetronically signed by Daisy Verde RN at 06/24/2019 4:15 PM Shania Rocha PA - 06/24/2019 11:51 AM EST DAILY PROGRESS NOTE SUBJECTIVE: Pt seen and examined at bedside today. No new complaints. Patient upset this morning, stating he does not want life vest or implantable defib device. He thinks he has had these episodes for years and has never had an issue thus far, and does not want to "go through all of this". Review of Systems Constitutional: Negative for chills and fever. Respiratory: Negative for cough and shortness of breath. Cardiovascular: Positive for leg swelling (improving ). Negative for chest pain. Gastrointestinal: Negative for abdominal pain, constipation, diarrhea, nausea and vomiting. Genitourinary: Negative for dysuria, frequency and urgency. Musculoskeletal: Negative for joint pain and myalgias. OBJECTIVE: Vitals: 06/24/19 0944 06/24/19 1134 06/24/19 1135 06/24/19 1136 BP: 143/78 109/68 116/76 118/75 BP Location: Right arm Right arm Right arm Patient Position: Lying Standing Standing Pulse: 78 77 83 82 Resp: 17 17 17 Temp: 36.7 C TempSrc: Oral SpO2: 96% 94% 95% Weight: Height: No intake/output data recorded. No intake/output data recorded. No data recorded Physical Exam Constitutional: He is oriented to person, place, and time and well-developed, well-nourished, and inno distress. Neck: Normal range of motion. Cardiovascular: Normal rate, regular rhythm and intact distal pulses. Exam reveals no gallop and no friction rub. No murmur heard. Pulmonary/Chest: Effort normal and breath sounds normal. No respiratory distress. He has no wheezes.He has no rales. Abdominal: Bowel sounds are normal. He exhibits no distension. There is no abdominal tenderness. Musculoskeletal: Normal range of motion. General: Edema (trace pitting b/l LE, improving ) present. Neurological: He is alert and oriented to person, place, and time. Skin: Skin is warm and dry. Psychiatric: Affect normal. LABS: Recent Labs Lab 06/22/19 0701 HCT 36.3* HGB 12.6* MCH 31.0 MCHC 34.6 MCV 89.7 PLT 244 RDW 13.4 WBC 7.5 Recent Labs Lab 06/22/19 0701 06/22/19 1833 06/23/19 0815 NA 132* 133* 133* K 3.9 4.5 5.2* CL 94* 95* 99 BICARBONATE 26 26 22 GLUCOSE 301* 345* 151* BUN 21 21 19 CREATININE 0.87 0.91 0.67* BCR 24 23 29 GFRAA >90 >90 >90 GFRNONAA 90 88 >90 Lab Results Component Value Date CALCIUM 9.2 06/23/2019 PHOS 2.7 04/08/2016 MEDICATIONS: Scheduled Meds: aspirin 81 mg Oral Daily atorvastatin 10 mg Oral QPM enoxaparin 40 mg Subcutaneous Daily furosemide 40 mg Intravenous BID gabapentin 300 mg Oral TID insulin lispro 1-8 Units Subcutaneous 3 x Daily with Meals insulin NPH-insulin regular 40 Units Subcutaneous Two times daily before breakfast and dinner lisinopril 10 mg Oral Daily metoprolol 50 mg Oral Daily rOPINIRole 1 mg Oral Nightly Continuous Infusions: [START ON 06/25/2019] lactated ringers PRN Meds:.dextrose, glucagon (human recombinant), glucose ASSESSMENT: Mr. Etienne Ramachandran is a 64 y.o. year old male who is here for Active Problems: Syncope Diabetic ulcer of toe of right foot associated with type 2 diabetes mellitus PLAN Syncope -Syncopal episode Saturday night, started OTC restless leg med 2-3 days prior, had been feeling lightheaded/whoozy since, leading to syncopal episode -Carotid doppler neg. 2D echo with diastolic dysfunction, no RWMA. Orthostatics neg. -Cardiology consulted for pt with symptomatic VT, history of arrythmias. Recommending life vest and possible ICD and EP follow up as OP, after toe amp. Acute on chronic diastolic CHF -worsening swelling past couple of days, takes lasix 80 mg po daily at home -continue iv diuresis here -2d echo with LV hypertrophy, no RWMA. CXR with congestion -HF education, daily weights, low na diet Monomorphic ventricular tachycardia -Noted on tele, 19 beat run woke him from his sleep, history of a cardiac arrhythmia that states hasnever been DX on holter. Mag and K wnl, TSH wnl. -Cardiology consulted, patient is high risk for sudden cardiac as he has had these episodes for years, pre-syncope. -Cardiology would like for him to have LifeFest prior to DC, and eventual follow up with EP and possible ICD. -Will increase Metoprolol to 75 mg po daily. Patient is refusing the above today , does not think he needs life vest or ICD as he has had these episodes for years. He does not seem to understand fully. Will address further after toe amp Restless leg syndrome -recently ran out of requip. Continue here and on DC, will need refills. 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 Pending hemoglobin a1c. Chronic right third toe osteo -Follows with wound clinic. Chronic osteo in the toe, has failed 3 OP ABX regimens. Saw ID last week, recommended IV ertapenem x 6 weeks but not covered so patient is not getting tx. -ID and Vascular consulted. Cannot get possible ICD with unresolved toe infection. Plan for toe amp on AM. Can start ABX after, pending pathologies. Above assessment and plan discussed with attending below. DVT Prophylaxis: low molecular weight heparin GI Prophylaxis:Not Indicated Diet: Dietary Orders (From admission, onward) Start Ordered 06/25/19 0001 Diet Age: Adult; Diet: NPO; Except For: PO Meds DIET EFFECTIVE MIDNIGHT Question Answer Comment Age Adult Diet NPO Except For PO Meds 06/23/19 1651 06/23/19 0803 Diet Age: Adult; Diet: Modified; Modifier: Mineral Modification (Na, Iodine), Consistent Carbohydrate; Consistent Carbohydrate: Adult-Moderate; Mineral Modification (Na, Iodine): 2 gm Na DIET EFFECTIVE NOW Question Answer Comment Age Adult Diet Modified Modifier Mineral Modification (Na, Iodine) Modifier Consistent Carbohydrate Consistent Carbohydrate Adult-Moderate Mineral Modification (Na, Iodine) 2 gm Na 06/23/19 0802 Code status: Full Code Estimated date of discharge: tbd 2 TIME SPENT: 20 min Some portions of note may be copied from previous note during this admission for continuity of patient care. Details reviewed and edited as appropriate. ~~~ Shania Urena PA-C [facility] Medicine [facility] 06/24/2019 11:52 AM Kevin Mello MD Associated attestation - Kevin Mello MD - 06/24/2019 12:39 PM CRISTINA saw and evaluated the patient and discussed the history, physical exam, assessment and plan with the physician mobile phone salesperson and agree with the findings and plan as documented in the note above with any additions made noted here: At the end of the day patient will not agree to Defibrillator at this time. Just wants to get out ofhere. He will follow up with Dr Paredes, to whom I spoke today. Total time:30 min Kevin Mello MD Hospitalist [facility] Kevin Mello MD - 06/24/2019 10:45 AM CRISTINA have reviewed pt's labs,consult notes from Dr Alejo and Dr Norman and after exam this am patientis cleared for surgery. I like the suggestion from Ning Madison. Thanks. Thang Coffman MD - 06/24/2019 8:55 AM EST Subjective: Interval History Interviewed this morning, resting comfortably in bed. No new concerns. 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 Lungs CTA bilat, Heart RRR with systolic murmur. Extremities: venous statis of b/l leg, pitting edema b/l leg, open wound on R 3rd toe. Assessment/Plan: 64 y/o M with uncontrolled DM, osteo of right toe, failed oral abx 3 times. H/o MRSA and cellulitis with group c strep in past. Has prosthetic aortic valve. Planned for toe amputation . No change in recommendation. Zafar Butler, MS4 I was present with the medical student for my service.I personally verified the history of present illness and performed the physical exam and medical decision making. I have verified all of students documentation for this encounter. Hopefully margins will be clear and he can have a short post op course. Fredy Mcknight MD - 06/23/2019 4:14 PM ESTCardiology Received a message that Mr. Ramachandran is being considered for toe amputation. He is stable from a cardiac standpoint to undergo surgery. He just needs to be monitored throughout. His LV function is normal. Thang Coffman MD - 2019 3:40 PM EST Infectious Disease Consult Reason for consult: R 3rd toe osteomyelitis Consult Type: Initial HPI Past Medical History Patient is 64y/o M with h/o uncontrolled DM, cardiac arrhythmia, CHF, and R third toe osteomyelitis. The right toe infection started early May, after hurting it while cutting his toe nails. He hastried outpatient abx but failed multiple times. Saw infectious disease on 06/18. According to previous notes, patient received Bactrim for 10 days starting 06/05/19 at the [facility]. On 06/18/2019, saw infectious disease HALEIGH Velez, was recommended for IV ertapenem 1g q24hr x6 weeks. However, patient couldn't afford this and did not start. Patient is currently admitted to hospital for syncopal episode, most likely due to arrhthymias. Past Medical History: Diagnosis Date CHF (congestive heart failure) Diabetes mellitus Diabetic ulcer of toe of right foot associated with type 2 diabetes mellitus 06/23/2019 High cholesterol Hypertension Mechanical heart valve present cow valve Past Surgical History: Procedure Laterality Date ablasion on heart 2010 CARDIAC SURGERY VASCULAR SURGERY Family History Problem Relation Age of Onset Cancer Mother Diabetes Father Heart attack Father Heart disease Father Social History Tobacco Use Smoking status: Never Smoker Smokeless tobacco: Never Used Substance Use Topics Alcohol use: No No Known Allergies ROS Constitutional: negative for chills and fevers Ears, nose, mouth, throat, and face: negative for ear drainage, hoarseness, nasal congestion and sore throat Cardiovascular: negative for chest pain, dyspnea and palpitations Gastrointestinal: negative for diarrhea and nausea Musculoskeletal:positive for right toe infection, no pain Physical Exam Visit Vitals BP 110/68 (BP Location: Left arm, Patient Position: Sitting) Pulse (!) 57 Temp 37.1 C (Oral) Resp 18 Ht 1.803 m Wt (!) 139.3 kg (307 lb) SpO2 100% BMI 42.82 kg/m General appearance: alert, appears stated age and cooperative Lungs: clear to auscultation bilaterally Heart: RRR, systolic murmur. Abdomen: morbid obesity Extremities: venous stasis of b/l leg, pitting edema bilat leg up to mid-calf , open wound on R 3rd toe Assessment and Plan 64 y/o M with h/o uncontrolled DM, arrhythmia, and R 3rd toe osteomyelitis. Patient was scheduled for IV ertapenem for 6 weeks but insurance denied coverage and didn't start. Currently not on any abx. Afebrile and no leukocytosis. Patient has reluctantly agreed to toe amputation. Zafar Butler, MS4 I was present with the medical student for my service.I personally verified the history of present illness and performed the physical exam and medical decision making. I have verified all of students documentation for this encounter. I was present with the medical student for my service.I personally verified the history of present illness and performed the physical exam and medical decision making. I have verified all of students documentation for this encounter. Osteo of toe. He has past hx mrsa and also a cellultis with group c step in 2017 treated by me . He has a porcine aortic valve. I agree most Expeditious and safest course of action is amputation of toe. Iv antibitics wothout debridement unlikely to ork and ertapenem might work unless he had mrsa orpseudomonas the former very likely. I would suggest Starting darius om linezolid and zosyn post amputation and javi uing until we are shore it was resected to good bone on path. [facility] 06/23/2019 2:[address] with Dr. Alejo who saw the patient today. Patient has been having long standing history of symptomatic palpitations at home. He has a history of arrhythmias that have never been caught on holter / tele. Had an episode last evening, 19 beat of V Tach, woke him from sleep. Per Dr. Alejo, patient is at risk of sudden cardiac due to his tachyarrhythmia. He has a normal EF on echo. He will need a cardiac life vest prior to discharge from hospital, will discuss with CM. However, he has a chronic osteo per his report, in his first third toe. This will hold up him getting a defibrillator. He will need EP study as well. He follows with [facility]. He saw ID outpatient who recommended 6 weeks of IV Ertapenem but patient could not afford it so it was never started. Will get OP records from [facility]. Will get ID and Vascular consults. Per ID hold off on ABX for now. [facility] is faxing records to [facility] including progress notes and MRI of his foot. HALEIGH Trimble-C Medicine chu, HALEIGH Escobedo - 06/23/2019 11:14 AM EST DAILY PROGRESS NOTE SUBJECTIVE: Pt seen and examined at bedside today. Feeling well today. Started taking an over the counter restless leg medication Saturday, and since was feeling like he wasgoing to "black out". Did pass out and lose consciousness Saturday night. No preceeding symptoms. Did notice increase in swelling in b/l LE over the past couple of days Patient admits to a history of some cardiac arrhythmia, unsure what it was, but knows his HR went upto the 200s. Review of Systems Constitutional: Negative for chills and fever. Respiratory: Negative for cough and shortness of breath. Cardiovascular: Positive for leg swelling. Negative for chest pain. Gastrointestinal: Negative for abdominal pain, constipation, diarrhea, nausea and vomiting. Genitourinary: Negative for dysuria. Musculoskeletal: Negative for myalgias. Neurological: Negative for dizziness. OBJECTIVE: Vitals: 06/22/19 2359 06/23/19 0429 06/23/19 0719 06/23/19 1054 BP: 119/69 114/67 107/67 119/74 BP Location: Left arm Left arm Left arm Patient Position: Lying Lying Lying Cuff size: Pulse: 81 92 77 77 Resp: 18 18 18 Temp: 36.4 C 37.1 C 36.7 C TempSrc: Oral Oral Oral SpO2: 96% 94% 94% Weight: Height: I/O last 3 completed shifts: In: 720 [P.O.:720] Out: - No intake/output data recorded. No data recorded Physical Exam Constitutional: He is oriented to person, place, and time and well-developed, well-nourished, and inno distress. Cardiovascular: Normal rate, regular rhythm and intact distal pulses. Exam reveals no gallop and no friction rub. No murmur heard. Pulmonary/Chest: Effort normal and breath sounds normal. No respiratory distress. He has no wheezes. Abdominal: Soft. Bowel sounds are normal. He exhibits no distension. There is no abdominal tenderness. Musculoskeletal: Normal range of motion. General: Edema (1+ pitting b/l LE to mid calf ) present. Neurological: He is alert and oriented to person, place, and time. Skin: Skin is warm and dry. Hyperpigmented b/l LE LABS: Recent Labs Lab 06/22/19 0701 HCT 36.3* HGB 12.6* MCH 31.0 MCHC 34.6 MCV 89.7 PLT 244 RDW 13.4 WBC 7.5 Recent Labs Lab 06/22/19 0701 06/22/19 1833 06/23/19 0815 NA 132* 133* 133* K 3.9 4.5 5.2* CL 94* 95* 99 BICARBONATE 26 26 22 GLUCOSE 301* 345* 151* BUN 21 21 19 CREATININE 0.87 0.91 0.67* BCR 24 23 29 GFRAA >90 >90 >90 GFRNONAA 90 88 >90 Lab Results Component Value Date CALCIUM 9.2 06/23/2019 PHOS 2.7 04/08/2016 MEDICATIONS: Scheduled Meds: aspirin 81 mg Oral Daily atorvastatin 10 mg Oral QPM enoxaparin 40 mg Subcutaneous Daily furosemide 20 mg Intravenous BID gabapentin 300 mg Oral TID insulin NPH-insulin regular 40 Units Subcutaneous Two times daily before breakfast and dinner lisinopril 10 mg Oral Daily metoprolol 50 mg Oral Daily rOPINIRole 1 mg Oral Nightly Continuous Infusions: PRN Meds:. ASSESSMENT: Mr. Etienne Ramachandran is a 64 y.o. year old male who is here for Active Problems: Syncope Diabetic ulcer of toe of right foot associated with type 2 diabetes mellitus PLAN Syncope -Syncopal episode Saturday night, started OTC restless leg med 2-3 days prior, had been feeling lightheaded/whoozy since, leading to syncopal episode -Carotid doppler neg. 2D echo with diastolic dysfunction, no RWMA. -pending orthostatics -likely related to med he started, however did have symptomatic vt last evening with apparent hx of cardiac arrhythmia. -cards consulted, pending recs. Already on toprol 50mg daily. -pt/ot Acute on chronic diastolic CHF -worsening swelling past couple of days, takes lasix 80 mg po daily at home -continue iv diuresis here -2d echo with LV hypertrophy, no RWMA. CXR with congestion -HF education, daily weights, low na diet Symptomatic non sustained v tach, ?hx cardiac arrhythmia -Last evening, woke him from sleep. History cardiac arrhythmia, no official dx -Mag and K wnl. TSH wnl. Trop flat. -does not follow with vat operator -takes toprol 50 mg po daily. Likely has some sleep apnea and will need outpatient sleep study. -Cardiology to see patient. Restless leg syndrome -recently ran out of requip. Continue here and on DC, will need refills. DM 2 with intermediate insulin use -Continue NPH and SS. Pending hemoglobin a1c. Chronic right third toe osteo -Follows with wound clinic. Chronic osteo in the toe, has failed 3 OP ABX regimens. Saw ID last week, recommended IV ertapenem x 6 weeks but not covered so patient is not getting tx. -Will need to follow up with wound care and ID on DC. Continue local wound care while here and monitor for s/s infection. Above assessment and plan discussed with attending below. DVT Prophylaxis: low molecular weight heparin GI Prophylaxis:Not Indicated Diet: Dietary Orders (From admission, onward) Start Ordered 06/23/19 0803 Diet Age: Adult; Diet: Modified; Modifier: Mineral Modification (Na, Iodine), Consistent Carbohydrate; Consistent Carbohydrate: Adult-Moderate; Mineral Modification (Na, Iodine): 2 gm Na DIET EFFECTIVE NOW Question Answer Comment Age Adult Diet Modified Modifier Mineral Modification (Na, Iodine) Modifier Consistent Carbohydrate Consistent Carbohydrate Adult-Moderate Mineral Modification (Na, Iodine) 2 gm Na 06/23/19 0802 Code status: Full Code Estimated date of discharge: likely 06/24 1 TIME SPENT: 20 min Some portions of note may be copied from previous note during this admission for continuity of patient care. Details reviewed and edited as appropriate. ~~~ Shania Urena PA-C [facility] 06/23/2019 11:14 AM Kevin Mello MD Associated attestation - Kevin Mello MD - 06/23/2019 12:35 PM CRISTINA saw and evaluated the patient and discussed the history, physical exam, assessment and plan with the physician mobile phone salesperson and agree with the findings and plan as documented in the note above with any additions made noted here: Total time:25 min Kevin Mello MD Hospitalist [facility] Radha Ambrocio RN - 06/23/2019 7:40 AM ESTOkay to give NPH-insulin regular 40 units as ordered on AUG with patient finger stick of 150 per Shania RICARDO. Also made PA aware of 19 beat run of possible V-tach at approximately 2238 on adha Ambrocio RN - 06/22/2019 10:24 AM ESTWound currently open to air, [place], patient states wound care is supposedto be done daily but patient can not reach toe to complete wound care Associated attestation - Nilsa Powers MD - 06/22/2019 11:13 AM Jakob Craig, PharmD - 06/22/2019 9:56 AM EST Pharmacist completed patient's medication reconciliation while patient was present in the ED/GEM. Source of med rec information: (terence X for all sources) [X] Patient [X] Pharmacy database (Dr. Irma pierre [facility]) Outpatient pharmacy where patient fills prescriptions: [facility] [facility] [place], [place] - [address] Of note: Patient is a good historian and was able to confirm most of their medication list. Patient reports his dose of Farxiga was recently increased from 5 mg to 10 mg. Patient is prescribed gabapentin 300 mg capsules 3x daily and reports he usually takes an additional 200 mg at bedtime. Patient reports taking furosemide 80 mg daily. Patient reports his ropinirole is 8 mg nightly, but he has only been taking 4 mg nightly due to insurance. The following medications were removed from the patient's home medication list as the patient was not taking them prior to admission: Medications Discontinued During This Encounter Medication Reason atorvastatin (LIPITOR) 40 MG tablet Dose adjustment BASAGLAR KWIKPEN 100 UNIT/ML pen Alternate therapy docusate sodium (COLACE) 100 MG capsule No longer needed NOVOLOG FLEXPEN 100 UNIT/ML SOPN pen Alternate therapy OneTouch Verio In Vitro Strip SSD 1 % cream Patient's Home Medication List: Prior to Admission medications Medication Sig Start Date End Date Taking? Authorizing Provider aspirin 81 MG tablet Take 81 mg by mouth daily. Indications: cardiovascular ppx Yes Historical Provider, Atorvastatin Calcium 10 MG Oral Tablet (LIPITOR) Take 10 mg by mouth every evening 05/16/19 Yes Historical Provider, FARXIGA 10 MG TABS Take 10 mg by mouth daily 12/10/17 Yes Historical ProviderMD furosemide (LASIX) 40 MG tablet Take 80 mg by mouth Daily Yes Historical Provider, gabapentin (NEURONTIN) 300 MG capsule Take 300 mg by mouth Three times daily 12/10/17 Yes HistoricalProviderMD Gabapentin 100 MG Oral Capsule (NEURONTIN) Take 200 mg by mouth nightly Yes Historical Provider, glipiZIDE 5 MG Oral Tablet (GLUCOTROL) Take 5 mg by mouth daily 05/21/19 Yes Historical Provider, Lisinopril 10 MG Oral Tablet (PRINIVIL,ZESTRIL) Take 10 mg by mouth daily Yes Historical Provider, metformin (GLUCOPHAGE) 1000 MG tablet Take 1,000 mg by mouth Two times daily with meals Yes Historical Provider, Metoprolol Succinate ER 50 MG Oral Tablet Extended Release 24 Hour (TOPROL-XL) Take 50 mg by mouth daily Yes Historical Provider, NovoLIN 70/30 FlexPen (70-30) 100 UNIT/ML Subcutaneous Suspension Pen-injector Inject 60 Units into the skin Two Times Daily 05/22/19 Yes Historical Provider , polyethylene glycol (MIRALAX) packet Take 17 g by mouth daily as needed for Constipation Yes Historical Provider, rOPINIRole (REQUIP) 4 MG tablet Take 4 mg by mouth nightly 12/06/17 Yes Historical Provider, Disclaimer: Medication history was completed based on information available during this patient encounter. The list above may not be all inclusive, including, but not limited to: over the counter medications, prescriptions filled at alternative pharmacy locations, medication samples from provider office, etc. Follow-up questions may be discussed with the pharmacy department if needed: [phone]. documented in this encounter Plan of Treatment Date Type Specialty Care Team Description 07/16/2019 Office Visit Vascular Surgery Agustina [place], HALEIGH [address] [facility] [address] [place] [address] [phone] Name Type Priority Associated Diagnoses Date/Time EKG 12 Lead ECG Routine 06/22/2019 5:29 AM (Unsolicited Computer EST Order) Fungus culture Microbiology Routine 06/25/2019 8:58 AM EST Fungus culture Microbiology Routine 06/25/2019 8:58 AM EST Name Type Priority Associated Order Schedule Diagnoses POCT glucose, Point of Care Routine 4X Daily (AC & HS) docked Testing-Docked for 30 Days starting Device 06/22/2019 until 07/22/2019, 31 completed Surgical Pathology Pathology and Routine Once for 1 Exam (Community Cytology Occurrences starting [place] Only) 06/25/2019 until 06/25/2019 Name Type Priority Associated Order Schedule Diagnoses Referral to Outpatient Referral Routine Syncope Ordered: Cardiology 06/24/2019 Referral to Home Outpatient Referral Routine Diabetic ulcer of Ordered: Health toe of right foot 06/29/2019 associated with type 2 diabetes mellitus, with necrosis of bone REFERRAL TO DME, Outpatient Referral Routine Syncope Ordered: EXTERNAL ONLY 06/30/2019 Health Maintenance Due Date Last Done Comments [...] Hepatitis C Screening (B. Completed 05/02/2017, 05/02/2017 [id number]) HIB Vaccines Aged Out No longer eligible based on patient's age to complete this topic Hepatitis A Vaccines Aged Out No longer eligible based on patient's age to complete this topic IPV Vaccines Aged Out No longer eligible based on patient's age to complete this topic documented as of this encounter Procedures Procedure Name Priority Date/Time Associated Diagnosis Comments POCT GLUCOSE, DOCKED Routine 06/30/2019 11:47 Results for this AM EST procedure are in the results section. POCT GLUCOSE, DOCKED Routine 06/30/2019 7:43 Results for this AM EST procedure are in the results section. POCT GLUCOSE, DOCKED Routine 06/29/2019 8:35 Results for this PM EST procedure are in the results section. POCT GLUCOSE, DOCKED Routine 06/29/2019 4:37 Results for this PM EST procedure are in the results section. POCT GLUCOSE, DOCKED Routine 06/29/2019 12:04 Results for this PM EST procedure are in the results section. POCT GLUCOSE, DOCKED Routine 06/29/2019 7:52 Results for this AM EST procedure are in the results section. POCT GLUCOSE, DOCKED Routine 06/28/2019 9:55 Results for this PM EST procedure are in the results section. POCT GLUCOSE, DOCKED Routine 06/28/2019 4:44 Results for this PM EST procedure are in the results section. POCT GLUCOSE, DOCKED Routine 06/28/2019 11:51 Results for this AM EST procedure are in the results section. POCT GLUCOSE, DOCKED Routine 06/28/2019 8:00 Results for this AM EST procedure are in the results section. POCT GLUCOSE, DOCKED Routine 06/28/2019 6:35 Results for this AM EST procedure are in the results section. POCT GLUCOSE, DOCKED Routine 06/27/2019 10:09 Results for this PM EST procedure are in the results section. POCT GLUCOSE, DOCKED Routine 06/27/2019 9:28 Results for this PM EST procedure are in the results section. POCT GLUCOSE, DOCKED Routine 06/27/2019 4:36 Results for this PM EST procedure are in the results section. POCT GLUCOSE, DOCKED Routine 06/27/2019 11:17 Results for this AM EST procedure are in the results section. POCT GLUCOSE, DOCKED Routine 06/27/2019 7:55 Results for this AM EST procedure are in the results section. POCT GLUCOSE, DOCKED Routine 06/26/2019 9:44 Results for this PM EST procedure are in the results section. POCT GLUCOSE, DOCKED Routine 06/26/2019 4:53 Results for this PM EST procedure are in the results section. POCT GLUCOSE, DOCKED Routine 06/26/2019 12:05 Results for this PM EST procedure are in the results section. POCT GLUCOSE, DOCKED Routine 06/26/2019 7:58 Results for this AM EST procedure are in the results section. BASIC METABOLIC PANEL Routine 06/26/2019 4:27 Results for this AM EST procedure are in the results section. POCT GLUCOSE, DOCKED Routine 06/25/2019 9:42 Results for this PM EST procedure are in the results section. POCT GLUCOSE, DOCKED Routine 06/25/2019 4:48 Results for this PM EST procedure are in the results section. POCT GLUCOSE, DOCKED Routine 06/25/2019 12:05 Results for this PM EST procedure are in the results section. POCT GLUCOSE, DOCKED Routine 06/25/2019 9:00 Results for this AM EST procedure are in the results section. BX/SURG TISSUE CULTURE Routine 06/25/2019 8:58 Results for this 1 AM EST procedure are in the results section. BX/SURG TISSUE CULTURE Routine 06/25/2019 8:58 Results for this 1 AM EST procedure are in the results section. GRAM STAIN Routine 06/25/2019 8:58 Results for this AM EST procedure are in the results section. GRAM STAIN Routine 06/25/2019 8:58 Results for this AM EST procedure are in the results section. ANAEROBIC CULTURE Routine 06/25/2019 8:58 Results for this AM EST procedure are in the results section. ANAEROBIC CULTURE Routine 06/25/2019 8:58 Results for this AM EST procedure are in the results section. AMPUTATION, TOE 06/25/2019 7:57 Osteomyelitis of INTERPHALANGEAL JOINT AM EST ankle or foot, right, acute Special Needs Ok Ning US GUIDED PERIPHERAL NERVE Routine 06/25/2019 7:41 AM EST BLOCK (OR ONLY) BASIC METABOLIC PANEL Routine 06/25/2019 6:00 AM EST SURGICAL PATHOLOGY EXAM Routine 06/25/2019 12:00 AM EST Results for this ([facility] ONLY) procedure are in the results section. POCT GLUCOSE, DOCKED Routine 06/24/2019 9:41 PM EST POCT GLUCOSE, DOCKED Routine 06/24/2019 4:58 PM EST BASIC METABOLIC PANEL Routine 06/24/2019 12:39 PM EST POCT GLUCOSE, DOCKED Routine 06/24/2019 11:42 AM EST POCT GLUCOSE, DOCKED Routine 06/24/2019 7:42 AM EST POCT GLUCOSE, DOCKED Routine 06/23/2019 9:33 PM EST POCT GLUCOSE, DOCKED Routine 06/23/2019 4:42 PM EST XR FOOT 3 OR MORE VIEWS Routine 06/23/2019 3:46 PM EST Results for this [id number] procedure are in the results section. POCT GLUCOSE, DOCKED Routine 06/23/2019 11:27 AM EST BASIC METABOLIC PANEL Timed 06/23/2019 8:15 AM EST POCT GLUCOSE, DOCKED Routine 06/23/2019 7:22 AM EST POCT GLUCOSE, DOCKED Routine 06/22/2019 9:36 PM EST MAGNESIUM LEVEL Routine 06/22/2019 6:33 PM EST BASIC METABOLIC PANEL Timed 06/22/2019 6:33 PM EST POCT GLUCOSE, DOCKED Routine 06/22/2019 4:48 PM EST ECHOCARDIOGRAM 2D COMPLETE Routine 06/22/2019 2:52 PM EST US DOPPLER LOWER EXTREMITY Routine 06/22/2019 2:26 PM EST Results for this BILATERAL VENOUS COMPLETE procedure are in the [address] results section. US DOPPLER CAROTID BILATERAL Routine 06/22/2019 2:25 PM EST Results for this COMPLETE 56962 procedure are in the results section. TROPONIN T Routine 06/22/2019 12:30 PM EST XR CHEST FRONTAL AND LATERAL STAT 06/22/2019 7:38 AM EST Results for this 053[address] procedure are in the results section. POCT ISTAT TROPONIN Routine 06/22/2019 7:[address] HEAD WITHOUT CONTRAST STAT 06/22/2019 7:13 AM EST Results for this [address] procedure are in the results section. ACETAMINOPHEN, RANDOM Routine 06/22/2019 7:01 AM EST PROBNP STAT 06/22/2019 7:01 AM EST ETHYL ALCOHOL LEVEL Routine 06/22/2019 7:01 AM EST CBC AND DIFFERENTIAL STAT 06/22/2019 7:01 AM EST TSH Routine 06/22/2019 7:01 AM EST SALICYLATE LEVEL Routine 06/22/2019 7:01 AM EST BASIC METABOLIC PANEL STAT 06/22/2019 7:01 AM EST EKG ED PHYSICIAN Routine 06/22/2019 5:49 AM EST Results for this INTERPRETATION procedure are in the results section. EKG 12 LEAD (UNSOLICITED Routine 06/22/2019 5:29 AM EST COMPUTER ORDER) Procedure Note - Interface, Received Via [employer] - 06/22/2019 5 :29 AM EST Ventricular Rate: 89 BPM Atrial Rate: 90 BPM QRS Duration: 112 ms Q-T Interval: 394 ms QTC Calculation(Bazett): 479 ms P Gary: -1 degrees R Gary: -56 degrees T Gary: 61 degrees : Critical Test Result: AV Block : SINUS RHYTHM WITH A-V DISSOCIATION AND ACCELERATED JUNCTIONAL : RHYTHM : LEFT ANTERIOR FASCICULAR BLOCK : POSSIBLE INFERIOR INFARCT , AGE UNDETERMINED : ANTEROLATERAL INFARCT , AGE UNDETERMINED : ABNORMAL ECG : WHEN COMPARED WITH ECG OF 05-JAN-2018 19:06, : JUNCTIONAL RHYTHM HAS REPLACED SINUS RHYTHM : ANTERIOR INFARCT IS NOW PRESENT : ANTEROLATERAL INFARCT IS NOW PRESENT : THIS IS A PRELIMINARY RESULT. EKG 12-LEAD - [facility] REPORT 06/22/2019 5:29 AM EST EKG 12-LEAD - [facility] REPORT 06/22/2019 5:29 AM EST EKG 12-LEAD STAT 06/22/2019 5:29 AM EST documented in this encounter Results POCT glucose, docked (06/30/2019 11:47 AM EST) POC Glucose 174 (H) 70 - 140 mg/dL [facility] POC Specimen Whole Blood Performing Organization Address [facility] Phone Number POINT OF CARE TEST [address] [place] [address] Formerly [facility] POC [address] [place] [address] POCT glucose, docked (06/30/2019 7:43 AM EST) POC Glucose 123 70 - 140 mg/dL [facility] POC Specimen Whole Blood Performing Organization Address [facility] Phone Number POINT OF CARE TEST [address] [place] [address] [facility] [address] [place] [address] POCT glucose, docked (06/29/2019 8:35 PM EST) POC Glucose 274 (H) 70 - 140 mg/dL [facility] POC Specimen Whole Blood Performing Organization Address [facility] Phone Number POINT OF CARE TEST [address] [place] [address] [facility]ly [facility] POC [address] [place] [address] POCT glucose, docked (06/29/2019 4:37 PM EST) POC Glucose 216 (H) 70 - 140 mg/dL [facility] POC Specimen Whole Blood Performing Organization Address [facility] Phone Number POINT OF CARE TEST [address] [place] [address] [facility]ly [facility]OC [address] [place] [address] POCT glucose, docked (06/29/2019 12:04 PM EST) POC Glucose 147 (H) 70 - 140 mg/dL [facility] POC Specimen Whole Blood Performing Organization Address [facility] Phone Number POINT OF CARE TEST [address] [place] [address] [facility] [address] [place] [address] POCT glucose, docked (06/29/2019 7:52 AM EST) POC Glucose 125 70 - 140 mg/dL [facility] POC Specimen Whole Blood Performing Organization Address [facility] Phone Number POINT OF CARE TEST [address] [place] [address] [facility] [address] [place] [address] POCT glucose, docked (06/28/2019 9:55 PM EST) POC Glucose 152 (H) 70 - 140 mg/dL [facility] POC Specimen Whole Blood Performing Organization Address [facility] Phone Number POINT OF CARE TEST [address] [place] [address] [facility] [address] [place] [address] POCT glucose, docked (06/28/2019 4:44 PM EST) POC Glucose 154 (H) 70 - 140 mg/dL [facility] POC Specimen Whole Blood Performing Organization Address [facility] Phone Number POINT OF CARE TEST [address] [place] [address] [facility]ly [facility]OC [address] [place] [address] POCT glucose, docked (06/28/2019 11:51 AM EST) POC Glucose 157 (H) 70 - 140 mg/dL [facility] POC Specimen Whole Blood Performing Organization Address [facility] Phone Number POINT OF CARE TEST [address] [place] [address] [facility]ly [facility] [address] [place] [address] POCT glucose, docked (06/28/2019 8:00 AM EST) POC Glucose 126 70 - 140 mg/dL [facility] POC Specimen Whole Blood Performing Organization Address [facility] Phone Number POINT OF CARE TEST [address] [place] [address] [facility] [address] [place] [address] POCT glucose, docked (06/28/2019 6:35 AM EST) POC Glucose 131 70 - 140 mg/dL [facility] POC Specimen Whole Blood Performing Organization Address [facility] Phone Number POINT OF CARE TEST [address] [place] [address] [facility] [address] [place] [address] POCT glucose, docked (06/27/2019 10:09 PM EST) POC Glucose 280 (H) 70 - 140 mg/dL [facility] POC Specimen Whole Blood Performing Organization Address [facility] Phone Number POINT OF CARE TEST [address] [place] [address] [facility] [address] [place] [address] POCT glucose, docked (06/27/2019 9:28 PM EST) POC Glucose 277 (H) 70 - 140 mg/dL [facility] POC Specimen Whole Blood Performing Organization Address [facility] Phone Number POINT OF CARE TEST [address] [place] [address] [facility]ly [facility] P[facility] [address] [place] [address] POCT glucose, docked (06/27/2019 4:36 PM EST) POC Glucose 211 (H) 70 - 140 mg/dL [facility] POC Specimen Whole Blood Performing Organization Address [facility] Phone Number POINT OF CARE TEST [address] [place] [address] [facility]ly [facility] [address] [place] [address] POCT glucose, docked (06/27/2019 11:17 AM EST) POC Glucose 203 (H) 70 - 140 mg/dL [facility] POC Specimen Whole Blood Performing Organization Address [facility] Phone Number POINT OF CARE TEST [address] [place] [address] [facility] [address] [place] [address] POCT glucose, docked (06/27/2019 7:55 AM EST) POC Glucose 123 70 - 140 mg/dL [facility] POC Specimen Whole Blood Performing Organization Address [facility] Phone Number POINT OF CARE TEST [address] [place] [address] [facility] [address] [place] [address] POCT glucose, docked (06/26/2019 9:44 PM EST) POC Glucose 130 70 - 140 mg/dL [facility] POC Specimen Whole Blood Performing Organization Address [facility] Phone Number POINT OF CARE TEST [address] [place] [address] [facility]ly [facility] [address] [place] [address] POCT glucose, docked (06/26/2019 4:53 PM EST) POC Glucose 157 (H) 70 - 140 mg/dL [facility] POC Specimen Whole Blood Performing Organization Address [facility] Phone Number POINT OF CARE TEST [address] [place] [address] [facility] POC [address] [place] [address] POCT glucose, docked (06/26/2019 12:05 PM EST) POC Glucose 211 (H) 70 - 140 mg/dL [facility] POC Specimen Whole Blood Performing Organization Address [facility] Phone Number POINT OF CARE TEST [address] [place] [address] [facility] POC [address] [place] [address] POCT glucose, docked (06/26/2019 7:58 AM EST) POC Glucose 128 70 - 140 mg/dL [facility] POC Specimen Whole Blood Performing Organization Address [facility] Phone Number POINT OF CARE TEST [address] [place] [address] [facility] POC [address] [place] [address] Basic Metabolic Panel (06/26/2019 4:27 AM EST) Bicarbonate 31 (H) 22 - 29 mmol/L [facility] Chloride 100 98 - 107 mmol/L [facility] Creatinine 0.88 0.70 - 1.20 [facility] mg/dL [facility] at [facility] Glucose 164 (H) 70 - 140 mg/dL [facility] Potassium 4.3 3.4 - 5.1 [facility] mmol/L [facility] Sodium 137 136 - 145 [facility] mmol/L [facility] Blood Urea Nitrogen 19 8 - 23 mg/dL [facility] Anion Gap 6 (L) 8 - 15 mmol/L [facility] Osmolality, Abdiaziz 290 275 - 300 [facility] mosm/kg [facility] BUN/Cre Ratio 22 [facility] Calcium 9.2 8.8 - 10.2 [facility] mg/dL [facility] GFR Non 90 >60 [facility] Faroese 2009 CDK-EPI mL/min/1.73m2 [facility] GFR >90 >60 [facility] 2009 CKD-EPI mL/min/1.73m2 [facility] Specimen Plasma Performing Organization Address City/[facility]/Zipcode Phone Number [facility] PATHOLOGY AT [facility] [address] [place] [address] [facility] [address] [place] [address] POCT glucose, docked (06/25/2019 9:42 PM EST) POC Glucose 142 (H) 70 - 140 mg/dL [facility] POC Specimen Whole Blood Performing Organization Address City/[facility] Phone Number POINT OF CARE TEST [address] [place] [address] [facility] POC [address] [place] [address] POCT glucose, docked (06/25/2019 4:48 PM EST) POC Glucose 262 (H) 70 - 140 mg/dL [facility] POC Specimen Whole Blood Performing Organization Address [facility] Phone Number POINT OF CARE TEST [address] [place] [address] [facility] POC [address] [place] [address] POCT glucose, docked (06/25/2019 12:05 PM EST) POC Glucose 220 (H) 70 - 140 mg/dL [facility] POC Specimen Whole Blood Performing Organization Address [facility] Phone Number POINT OF CARE TEST [address] [place] [address] [facility] POC [address] [place] [address] POCT glucose, docked (06/25/2019 9:00 AM EST) POC Glucose 182 (H) 70 - 140 mg/dL [facility] POC Specimen Whole Blood Performing Organization Address City/[facility] Phone Number POINT OF CARE TEST [address] [place] [address] [facility] POC [address] [place] [address] Gram stain (06/25/2019 8:58 AM EST) Special Request None [facility] at Gram Stain Test Not [facility] Performed. Entry Univ Clin Pathology Error Gram Stain Refer to culture [facility] [id number] [facility] Clin Pathology Specimen Tissue Performing Organization Address City/State/Zipcode Phone Number [facility] CLINICAL PATHOLOGY [address] [place] [address] [phone] [facility] [address] [place] [address] [facility] Univ Clin [address] [place] [address] Pathology Anaerobic culture ; (06/25/2019 8:58 AM EST) Special Request 2 PROXIMAL MARGIN [facility] RT 3RD TOE Univ [facility] Pathology Culture/Results No anaerobes [facility] isolated [facility] Pathology Specimen Tissue Performing Organization Address [facility] Phone Number [facility] CLINICAL PATHOLOGY [address] [place] [address] [facility] Univ Clin [address] [place] [address] Pathology Gram stain (06/25/2019 8:58 AM EST) Special Request None [facility] at Gram Stain Test Not [facility] Performed. Entry [facility] Pathology Error Gram Stain Refer to culture [facility] [id number] [facility] Clin Pathology Specimen Bone Performing Organization Address [facility] Phone Number [facility] PATHOLOGY [address] [place] [address] [facility] [address] [place] [address] [facility] Univ Clin [address] [place] [address] Pathology Anaerobic culture ; (06/25/2019 8:58 AM EST) Special Request 1 INFECTED DISTAL [facility] 3RD PHALNYX Univ Clin Pathology Culture/Results No anaerobes [facility] isolated Univ [facility] Pathology Specimen Tissue Performing Organization Address [facility] Phone Number [facility] CLINICAL PATHOLOGY [address] [place] [address] [facility] Univ Clin [address] [place] [address] Pathology Bx/Surg Tissue Culture 1 (06/25/2019 8:58 AM EST) Special Request 2 PROXIMAL MARGIN [facility] RT 3RD TOE Univ [facility] Pathology Gram Stain No WBC's or [facility] organisms seen. Univ Clin Pathology Culture/Results NO GROWTH [facility] Clin Pathology Specimen Tissue Performing Organization Address [facility] Phone Number [facility] CLINICAL PATHOLOGY [address] [place] [address] [facility] Univ Clin [address] [place] [address] Pathology Bx/Surg Tissue Culture 1 (06/25/2019 8:58 AM EST) Special Request 1 INFECTEDDISTAL 3RD [facility] PHALANYX [facility] Pathology Gram Stain No WBC's or organisms [facility] seen. [facility] Pathology Culture/Results STAPHYLOCOCCUS AUREUS [facility] (A) [facility] Pathology Culture/Results ENTEROCOCCUS FAECALIS [facility] (A) [facility] Pathology Culture/Results (NOTE) [facility] Called to and read back by Alissa Osei RN/6WCC on 06/26/19 at 0827 [facility] EVANS Pathology Specimen Tissue Organism Antibiotic Method Susceptibility Staphylococcus aureus Cefazolin SELECT NICOLAS Sensitive RESULTS REPORTED. Staphylococcus aureus Erythromycin SELECT NICOLAS <=0.25: Sensitive RESULTS REPORTED. Staphylococcus aureus Clindamycin SELECT NICOLAS 0.25: Sensitive RESULTS REPORTED. Staphylococcus aureus Oxacillin SELECT NICOLAS 0.5: Sensitive RESULTS REPORTED. Staphylococcus aureus Trimethoprim + SELECT NICOLAS <=0.5/9.5: Sensitive Sulfamethoxazole RESULTS REPORTED. Staphylococcus aureus Vancomycin SELECT NICOLAS 1: Sensitive RESULTS REPORTED. Enterococcus faecalis Ampicillin SELECT NICOLAS <=2: Sensitive RESULTS REPORTED. Enterococcus faecalis Vancomycin SELECT NICOLAS 1: Sensitive RESULTS REPORTED. Enterococcus faecalis Gentamicin Synergy SELECT NICOLAS Resistant RESULTS REPORTED. Comment: Not synergistic with cell wall-active agent (penicillins and vancomycin). Enterococcus faecalis Streptomycin Synergy SELECT NICOLAS RESULTS REPORTED. Sensitive Comment: Synergistic with cell wall-active agent (e.g. penicillins and vancomycin) that is also susceptible. Agent should not be used alone. Performing Organization Address City/State/Zipcode Phone Number [facility] CLINICAL PATHOLOGY [address] [place] [address] [facility] Clin [address] [place] [address] Pathology US Guided Peripheral Nerve Block (OR ONLY) (06/25/2019 7:41 AM EST) Specimen Performing Organization Address City/[facility]/Zipcode Phone Number [facility] RADI[facility] [address] [place] [address] Basic Metabolic Panel (06/25/2019 6:00 AM EST) Bicarbonate 27 22 - 29 mmol/L [facility] at [facility] Chloride 98 98 - 107 mmol/L [facility] at Creatinine 0.80 0.70 - 1.20 [facility] mg/dL [facility] at Glucose 169 (H) 70 - 140 mg/dL [facility] at Potassium 3.7 3.4 - 5.1 [facility] mmol/L [facility] at Sodium 137 136 - 145 [facility] mmol/L [facility] at Blood Urea Nitrogen 23 8 - 23 mg/dL [facility] at Anion Gap 12 8 - 15 mmol/L [facility] at Osmolality, Abdiaziz 292 275 - 300 [facility] mosm/kg [facility] at BUN/Cre Ratio 28 [facility] at Calcium 9.2 8.8 - 10.2 [facility] mg/dL Medical [facility] at GFR Non >90 >60 [facility] [place] 2009 CDK-EPI mL/min/1.73m2 [facility] GFR >90 >60 [facility] 2009 CKD-EPI mL/min/1.73m2 [facility] at Specimen Plasma Performing Organization Address City/State/Zipcode Phone Number [facility] PATHOLOGY AT [facility] [address] [place] [phone] [facility] [place] [address] Surgical Pathology Exam ([facility] Only) (06/25/2019 12:00 AM EST) SURGICAL Surgical Pathology Report [facility] PATHOLOGY (CC) Name: ETIEN[facility] RAMACHANDRAN PATHOLOGY AT [facility] Collection Date: 06/25/2019 00:00 Received Date: 06/25/2019 10:38 Physician(s): KEVIN MELLO SCOTT M Specimen(s) Received A: Toe, right third B: Margin, proximal bone right third toe Clinical History Osteomyelitis right third toe. Diagnosis A) TOE, RIGHT THIRD, AMPUTATION: HYPERKERATOTIC SKIN WITH ULCER, AND SOFT TISSUE WITH PATCHY MODERATE CHRONIC AND MILD ACUTE INFLAMMATION. BONE WITH MARROW NECROSIS. NO ACUTE OSTEOMYELITIS IDENTIFIED. MARGINS VIABLE. B) BONE, PROXIMAL MARGIN OF RIGHT THIRD TOE, EXCISION: NO SIGNIFICANT PATHOLOGIC CHANGES. Consuelo Hu MD;Resident Pathologist Electronically Signed By Tawny Cha M.D., Attending Pathologist 06/26/2019 13:22:01 Processed at [facility] Pathology Laboratory at [facility], [address] [place] [address]. The attending pathologist named above attests that he/she has personally reviewed the relevant preparation(s) for the specimen, performed microscopic examination when indicated, and rendered the final diagnosis. Unless 'gross-only' is specified, the final diagnosis is based on a microscopic examination of pharmacy sales representative sections of tissue. Gross Description The specimen is received in two parts. Part A is received in formalin labeled with the patient's name "Etienne Ramachandran" and "right third toe". It consists of a segment of toe measuring 3.5 cm in length. The nail is identified and appears oliveros-yellow and irregular with thickening at the end. The skin is white, keratotic with a deep punctate ulcer at the tip of the toe measuring 1.3 cm in diameter. The skin and soft tissue at the margin appear viable. The exposed bone is disarticulated with smooth surfaces present. On sectioning, the ulcer abuts and extends to the underlying bone. Also received in the same container is a segment of bone measuring 1.2 cm in length. One end is disarticulated; the opposing is smooth. The specimen is bisected. [employer] T[employer] sections are submitted: A1 -skin and soft tissue margin A2 -longitudinal complete cross section of toe following decalcification A3 -pharmacy sales representative section of additional segment of bone following decalcification Part B is received fresh labeled with the patient's name "Etienne Ramachandran" and "proximal bone margin right". It consists of a fragment of red bone measuring 0.4 cm in greatest dimension. The fragment is submitted in toto in one cassette following decalcification. ND/pws This report may include one or more immunohistochemical stain results that use analyte specific reagents. All positive and negative controls have been reviewed by the attending pathologist and are satisfactory. The tests were developed and their performance characteristics determined by [facility] Pathology department. They have not been cleared or approved by the [place] Food and Drug Administration. The FDA has determined that such clearance or approval is not necessary. Specimen Performing Organization Address City/State/Zipcode Phone Number [facility] PATHOLOGY AT [facility] [address] [place] [address] POCT glucose, docked (06/24/2019 9:41 PM EST) POC Glucose 222 (H) 70 - 140 mg/dL [facility] POC Specimen Whole Blood Performing Organization Address City/[facility]/Zipcode Phone Number POINT OF CARE TEST [address] [place] [address] [facility] POC [address] [place] [address] POCT glucose, docked (06/24/2019 4:58 PM EST) POC Glucose 159 (H) 70 - 140 mg/dL [facility] POC Specimen Whole Blood Performing Organization Address City/State/Zipcode Phone Number POINT OF CARE TEST [address] [place] [address] [facility] POC [address] [place] [address] Basic Metabolic Panel (06/24/2019 12:39 PM EST) Bicarbonate 29 22 - 29 mmol/L [facility] Chloride 94 (L) 98 - 107 mmol/L [facility] Creatinine 0.82 0.70 - 1.20 [facility] mg/dL [facility] at CG Glucose 191 (H) 70 - 140 mg/dL [facility] Potassium 4.2 3.4 - 5.1 [facility] mmol/L [facility] Sodium 133 (L) 136 - 145 [facility] mmol/L [facility] Blood Urea Nitrogen 20 8 - 23 mg/dL [facility] Anion Gap 10 8 - 15 mmol/L [facility] Osmolality, Abdiaziz 284 275 - 300 [facility] mosm/kg [facility] at CG BUN/Cre Ratio 25 [facility] at CG Calcium 9.3 8.8 - 10.2 [facility] mg/dL [facility] at CG GFR Non >90 >60 [facility] Far[place] 2008 CDK-EPI mL/min/1.73m2 Medical Univ at CG GFR >90 >60 [facility] 2008 CKD-EPI mL/min/1.73m2 [facility] at CG Specimen Plasma Performing Organization Address City/[facility]/Zipcode Phone Number [facility] AT [facility] [address] [facility] [place] [address] [facility] at CG [address] [place] [address] POCT glucose, docked (06/24/2019 11:42 AM EST) POC Glucose 199 (H) 70 - 140 mg/dL [facility] POC Specimen Whole Blood Performing Organization Address City/[facility]/Zipcode Phone Number POINT OF CARE TEST [address] [facility] [place] [address] [facility] POC [address] [facility] [place] [address] POCT glucose, docked (06/24/2019 7:42 AM EST) POC Glucose 160 (H) 70 - 140 mg/dL [facility] POC Specimen Whole Blood Performing Organization Address City/[facility] Phone Number POINT OF CARE TEST [address] [place] [address] [facility] POC [address] [place] [address] POCT glucose, docked (06/23/2019 9:33 PM EST) POC Glucose 208 (H) 70 - 140 mg/dL [facility] POC Specimen Whole Blood Performing Organization Address [facility] Phone Number POINT OF CARE TEST [address] [place] [address] [facility] P[facility] [address] [place] [address] POCT glucose, docked (06/23/2019 4:42 PM EST) POC Glucose 197 (H) 70 - 140 mg/dL [facility] POC Specimen Whole Blood Performing Organization Address [facility] Phone Number POINT OF CARE TEST [address] [place] [address] [facility] POC [address] [place] [address] XR Foot 3 or More Views Right (06/23/2019 3:46 PM EST) Specimen Impressions Performed At IMPRESSION: Bones are demineralized. Subtle lucency and irregularity [facility] are seen involving the tuft of the right third toe distal phalanx, suspicious for a pneumonitis. Consider an MRI examination of the right foot to help further evaluate. Generalized soft tissue swelling and subcutaneous stranding are seen about the right foot which may relate to edema/cellulitis. No acute fracture is identified. There is spurring along the posterior and plantar aspect of the calcaneus. Narrative Performed At INDICATION: Evaluate right third toe ulcer/osteomyelitis. [facility] TECHNIQUE: Multiple views of the right foot were obtained. COMPARISON: Prior study dated 05/16/2019. FINDINGS/ Procedure Note Interface, Received Via [employer] - 06/23/2019 4:15 PM EST INDICATION: Evaluate right third toe ulcer/osteomyelitis. TECHNIQUE: Multiple views of the right foot were obtained. COMPARISON: Prior study dated 05/16/2019. FINDINGS/ IMPRESSION: Bones are demineralized. Subtle lucency and irregularity are seen involving the tuft of the right third toe distal phalanx, suspicious for a pneumonitis. Consider an MRI examination of the right foot to help further evaluate. Generalized soft tissue swelling and subcutaneous stranding are seen about the right foot which may relate to edema/cellulitis. No acute fracture is identified. There is spurring along the posterior and plantar aspect of the calcaneus. Performing Organization Address City/State/Zipcode Phone Number [facility] [address] [place] [address] POCT glucose, docked (06/23/2019 11:27 AM EST) POC Glucose 187 (H) 70 - 140 mg/dL [facility] POC Specimen Whole Blood Performing Organization Address City/[facility] Phone Number POINT OF CARE TEST [address] [place] [address] [facility] POC [address] [place] [address] Basic Metabolic Panel (06/23/2019 8:15 AM EST) Bicarbonate 22 22 - 29 [facility] mmol/L [facility] at CG Chloride 99 98 - 107 [facility] mmol/L [facility] at [facility] Creatinine 0.67 (L) 0.70 - 1.20 [facility] mg/dL [facility] at [facility] Glucose 151 (H) 70 - 140 [facility] mg/dL [facility] at [facility] Potassium 5.2 (H)Comment: 3.4 - 5.1 [facility] Hemolyzed mmol/L [facility] at [facility] Sodium 133 (L) 136 - 145 [facility] mmol/L [facility] at [facility] Blood Urea Nitrogen 19 8 - 23 mg/dL [facility] at [facility] Anion Gap 12 8 - 15 mmol/L [facility] Osmolality, Abdiaziz 281 275 - 300 [facility] mosm/kg [facility] BUN/Cre Ratio 29 [facility] at [facility] Calcium 9.2 8.8 - 10.2 [facility] mg/dL [facility] at CG GFR Non >90 >60 [facility] [place] 2009 mL/min/1.73m2 Medical Univ at CDK-EPI CG GFR >90 >60 [facility] [place] 2008 mL/min/1.73m2 Medical Univ at CKD-EPI CG Specimen Plasma Performing Organization Address City/[facility]/Zipcode Phone Number [facility] [address] [place] [address] [facility] at [facility] [address] [place] [address] POCT glucose, docked (06/23/2019 7:22 AM EST) POC Glucose 150 (H) 70 - 140 mg/dL [facility] POC Specimen Whole Blood Performing Organization Address City/[facility] Phone Number POINT OF CARE TEST [address] [place] [address] [facility] [address] [place] [address] POCT glucose, docked (06/22/2019 9:36 PM EST) POC Glucose 243 (H) 70 - 140 mg/dL [facility] POC Specimen Whole Blood Performing Organization Address City/[facility] Phone Number POINT OF CARE TEST [address] [facility] [place] [address] [facility] [address] [place] [address] Magnesium Level (06/22/2019 6:33 PM EST) Pathologist [facility] Magnesium 2.3 1.6 - 2.4 mg/dL [facility] at [facility] Specimen Plasma Performing Organization Address [facility] Phone Number [facility] [address] [place] [address] [phone] [facility] [address] [place] [address] Basic Metabolic Panel (06/22/2019 6:33 PM EST) Bicarbonate 26 22 - 29 mmol/L [facility] at [facility] Chloride 95 (L) 98 - 107 mmol/L [facility] Creatinine 0.91 0.70 - 1.20 [facility] mg/dL [facility] at Glucose 345 (H) 70 - 140 mg/dL [facility] Potassium 4.5 3.4 - 5.1 [facility] mmol/L [facility] Sodium 133 (L) 136 - 145 [facility] mmol/L [facility] Blood Urea Nitrogen 21 8 - 23 mg/dL [facility] Anion Gap 13 8 - 15 mmol/L [facility] Osmolality, Abdiaziz 293 275 - 300 [facility] mosm/kg [facility] BUN/Cre Ratio 23 [facility] Calcium 9.2 8.8 - 10.2 [facility] mg/dL [facility] at CG GFR Non 88 >60 [facility] 2008 CDK-EPI mL/min/1.73m2 Medical Univ at CG GFR >90 >60 [facility] 2008 CKD-EPI mL/min/1.73m2 [facility] at Specimen Plasma Performing Organization Address City/[facility]/Zipcode Phone Number [facility] [address] [place] [address] [facility] [address] [place] [address] POCT glucose, docked (06/22/2019 4:48 PM EST) POC Glucose 256 (H) 70 - 140 mg/dL [facility] POC Specimen Whole Blood Performing Organization Address City/[facility]/Zipcode Phone Number POINT OF CARE TEST [address] [facility] [place] [address] [facility] [address] [facility] [place] [address] Echocardiogram 2D Complete (06/22/2019 2:52 PM EST) Left Ventricular EF by Teichholz 65 [facility] Method Specimen Narrative Performed At HEIGHT: 180.3 cm (5 ft 11.0 in) [facility] WEIGHT: 139.3 kg (307.0 lbs) BP: 123/74 BSA: FINDINGS ------- TYPE OF REPORT:This is a complete two-dimensional transthoracic echocardiogram (2D, M-mode, Doppler and color flow Doppler). ECG RHYTHM:Sinus rhythm. STUDY QUALITY:This was a technically extremely difficult study secondary to poor echo windows. LEFT VENTRICLE:The left ventricle size is normal. There is mild concentric left ventricular hypertrophy. No obvious apical thrombus visualized. Overall LV systolic function is normal. Estimated LVEF 65%. There are no regional wall motion abnormalities. Doppler indices indicate impaired LV relaxation. RIGHT VENTRICLE:The right ventricle is normal in size. The right ventricular wall thickness is normal. The right ventricular systolic function is normal. LEFT ATRIUM:The left atrium is mildly dilated. RIGHT ATRIUM:The right atrium is mildly enlarged. The right atrium size by volume measurement is abnormal. AORTIC VALVE:A bioprosthetic valve of unknown type is present in the aortic position. The valve is well seated and does not rock. There is no aortic stenosis. There is no aortic regurgitation. The gradients across the valve are within expected limits for this type valve in the aortic position. MITRAL VALVE:Mild mitral annular calcification present. There is no mitral regurgitation. There is no mitral stenosis. PULMONIC VALVE:Trace/mild (physiologic) pulmonic regurgitation present. TRICUSPID VALVE:The tricuspid appears grossly normal. Mild tricuspid regurgitation present. Assuming a RA pressure of 10.00mmHg, estimated PA systolic pressure is { 33mmHg}. The estimated PA systolic pressure is borderline increased. PERICARDIUM:A prominent epicardial fat pad is noted. There is no evidence of cardiac tamponade. AORTA:The aortic root is dilated. CONCLUSIONS 1. There is mild concentric left ventricular hypertrophy. 2. Overall LV systolic function is normal. 3. LVEF 65%. 4. There are no regional wall motion abnormalities. 5. Doppler indices indicate impaired LV relaxation. 6. The right ventricular systolic function is normal. 7. The left atrium is mildly dilated. 8. The right atrium is mildly enlarged. 9. A bioprosthetic valve of unknown type is present in the aortic position. 10. The valve is well seated and does not rock. 11. There is no aortic stenosis. 12. There is no aortic regurgitation. 13. The gradients across the valve are within expected limits for this type valve in the aortic position(1.48mps/9mmHg/5mmHg). 14. Trace/mild (physiologic) pulmonic regurgitation present. 15. Mild tricuspid regurgitation present. 16. Assuming a RA pressure of {10mmHg}, estimated PA systolic pressure is { 33mmHg}. 17. The estimated PA systolic pressure is borderline increased. 18. A prominent epicardial fat pad is noted. 19. The aortic root is dilated(4.34cm). Aortic arch also may dilated( 5.1cm) 20. Compared with the findings of the prior report of (05/15/17): AV data was (2.5mps/25mmHg/12mmHg) and aortci root size was measured at 3.36cm. Conclusions completed MEASUREMENTS LVOT Diam: 2.13 cm Ao Diam: 4.34 cm LA Diam: 6.52 cm IVSd: 1.33 cm LVIDd: 5.16 cm LVPWd: 1.26 cm LVIDs: 2.99 cm LVIDs Index: 1.18 cm/m ESV(Teich): 34.76 ml EF(Teich): 72.63 % ESV(Cube): 26.77 ml EF(Cube): 80.47 % %FS: 41.98 % SV(Teich): 92.24 ml SI(Teich): 36.46 ml/m SV(Cube): 110.32 ml SI(Cube): 43.60 ml/m RWT: 0.49 LALd A4C: 4.62 cm LAAd A4C: 22.12 cm LAEDV A-L A4C: 90.00 ml LAEDV MOD A4C: 83.12 ml LALd A2C: 5.20 cm LAAd A2C: 20.01 cm LAEDV A-L A2C: 65.31 ml LAEDV MOD A2C: 63.26 ml LAEDV(A-L): 81.41 ml LAEDV Index (A-L): 32.18 ml/m LAEDV(MOD BP): 76.67 ml LAEDVInd MOD BP: 30.30 ml/m RALd: 6.27 cm Lynn A4C: 27.82 cm RAEDV A-L: 104.69 ml RAEDV INDEX: 41.38 ml/m MV E Antonio: 0.96 m/s MV DecT: 213.85 ms MV Dec Murray: 4.49 m/s MV A Antonio: 1.18 m/s MV E/A Ratio: 0.82 MV PHT: 62.02 ms MVA By PHT: 3.55 cm LVOT Vmax: 1.39 m/s LVOT Vmean: 1.06 m/s LVOT maxP.72 mmHg LVOT meanP.99 mmHg AV Vmax: 1.48 m/s AV Vmean: 1.07 m/s AV maxP.77 mmHg AV meanP.14 mmHg AV VTI: 31.44 cm ERAN Vmax: 3.34 cm ERAN (VTI): 3.27 cm AVAI (VTI): 1.292 cm /m AVAI Vmax: 1.318 cm /m DVI: 0.92 PV Vmax: 0.91 m/s PV maxP.32 mmHg TR Vmax: 2.41 m/s TR maxP.21 mmHg RAP: 10.00 mmHg RVSP: 33.21 mmHg Electronically Signed By: Cale Martin Sr, MD FACC Electronically Signed On: 06/23/2019 11:11:57 Procedure Note Interface, Received Via [employer] - 06/23/2019 11:20 AM EST HEIGHT: 180.3 cm (5 ft 11.0 in) WEIGHT: 139.3 kg (307.0 lbs) BP: 123/74 BSA: FINDINGS ------- TYPE OF REPORT:This is a complete two-dimensional transthoracic echocardiogram (2D, M-mode, Doppler and color flow Doppler). ECG RHYTHM:Sinus rhythm. STUDY QUALITY:This was a technically extremely difficult study secondary to poor echo windows. LEFT VENTRICLE:The left ventricle size is normal. There is mild concentric left ventricular hypertrophy. No obvious apical thrombus visualized. Overall LV systolic function is normal. Estimated LVEF 65%. There are no regional wall motion abnormalities. Doppler indices indicate impaired LV relaxation. RIGHT VENTRICLE:The right ventricle is normal in size. The right ventricular wall thickness is normal. The right ventricular systolic function is normal. LEFT ATRIUM:The left atrium is mildly dilated. RIGHT ATRIUM:The right atrium is mildly enlarged. The right atrium size by volume measurement is abnormal. AORTIC VALVE:A bioprosthetic valve of unknown type is present in the aortic position. The valve is well seated and does not rock. There is no aortic stenosis. There is no aortic regurgitation. The gradients across the valve are within expected limits for this type valve in the aortic position. MITRAL VALVE:Mild mitral annular calcification present. There is no mitral regurgitation. There is no mitral stenosis. PULMONIC VALVE:Trace/mild (physiologic) pulmonic regurgitation present. TRICUSPID VALVE:The tricuspid appears grossly normal. Mild tricuspid regurgitation present. Assuming a RA pressure of 10.00mmHg, estimated PA systolic pressure is { 33mmHg}. The estimated PA systolic pressure is borderline increased. PERICARDIUM:A prominent epicardial fat pad is noted. There is no evidence of cardiac tamponade. AORTA:The aortic root is dilated. CONCLUSIONS 1. There is mild concentric left ventricular hypertrophy. 2. Overall LV systolic function is normal. 3. LVEF 65%. 4. There are no regional wall motion abnormalities. 5. Doppler indices indicate impaired LV relaxation. 6. The right ventricular systolic function is normal. 7. The left atrium is mildly dilated. 8. The right atrium is mildly enlarged. 9. A bioprosthetic valve of unknown type is present in the aortic position. 10. The valve is well seated and does not rock. 11. There is no aortic stenosis. 12. There is no aortic regurgitation. 13. The gradients across the valve are within expected limits for this type valve in the aortic position(1.48mps/9mmHg/5mmHg). 14. Trace/mild (physiologic) pulmonic regurgitation present. 15. Mild tricuspid regurgitation present. 16. Assuming a RA pressure of {10mmHg}, estimated PA systolic pressure is { 33mmHg}. 17. The estimated PA systolic pressure is borderline increased. 18. A prominent epicardial fat pad is noted. 19. The aortic root is dilated(4.34cm). Aortic arch also may dilated( 5.1cm) 20. Compared with the findings of the prior report of (05/15/17): AV data was (2.5mps/25mmHg/12mmHg) and aortci root size was measured at 3.36cm. Conclusions completed MEASUREMENTS LVOT Diam: 2.13 cm Ao Diam: 4.34 cm LA Diam: 6.52 cm IVSd: 1.33 cm LVIDd: 5.16 cm LVPWd: 1.26 cm LVIDs: 2.99 cm LVIDs Index: 1.18 cm/m ESV(Teich): 34.76 ml EF(Teich): 72.63 % ESV(Cube): 26.77 ml EF(Cube): 80.47 % %FS: 41.98 % SV(Teich): 92.24 ml SI(Teich): 36.46 ml/m SV(Cube): 110.32 ml SI(Cube): 43.60 ml/m RWT: 0.49 LALd A4C: 4.62 cm LAAd A4C: 22.12 cm LAEDV A-L A4C: 90.00 ml LAEDV MOD A4C: 83.12 ml LALd A2C: 5.20 cm LAAd A2C: 20.01 cm LAEDV A-L A2C: 65.31 ml LAEDV MOD A2C: 63.26 ml LAEDV(A-L): 81.41 ml LAEDV Index (A-L): 32.18 ml/m LAEDV(MOD BP): 76.67 ml LAEDVInd MOD BP: 30.30 ml/m RALd: 6.27 cm Lynn A4C: 27.82 cm RAEDV A-L: 104.69 ml RAEDV INDEX: 41.38 ml/m MV E Antonio: 0.96 m/s MV DecT: 213.85 ms MV Dec Murray: 4.49 m/s MV A Antonio: 1.18 m/s MV E/A Ratio: 0.82 MV PHT: 62.02 ms MVA By PHT: 3.55 cm LVOT Vmax: 1.39 m/s LVOT Vmean: 1.06 m/s LVOT maxP.72 mmHg LVOT meanP.99 mmHg AV Vmax: 1.48 m/s AV Vmean: 1.07 m/s AV maxP.77 mmHg AV meanP.14 mmHg AV VTI: 31.44 cm ERAN Vmax: 3.34 cm ERAN (VTI): 3.27 cm AVAI (VTI): 1.292 cm /m AVAI Vmax: 1.318 cm /m DVI: 0.92 PV Vmax: 0.91 m/s PV maxP.32 mmHg TR Vmax: 2.41 m/s TR maxP.21 mmHg RAP: 10.00 mmHg RVSP: 33.21 mmHg Electronically Signed By: Cale Martin Sr, MD [facility] Electronically Signed On: 06/23/2019 11:11:57 Performing Organization Address City/State/Zipcode Phone Number [facility] US Doppler Lower Extremity Bilateral Venous Complete (CC) (06/22/2019 2:26 PM EST) Specimen Impressions Performed At Impression: [facility] 1. No right or left lower extremity deep venous thrombosis. 2. Superficial thrombosis within the right calf varicose veins. Previously the superficial thrombus was in the right distal calf varicose veins 3. Bilateral lower extremity edema may be related to volume overload. 4. Bilateral lower extremity varicose veins. Narrative Performed At Exam: Bilateral lower extremity real-time compression venous ultrasound [facility] with Color Doppler imaging. History: Swelling. COMPARISON: Right Lower extremity venous duplex from 11/25/2018. Chest radiograph from 06/22/2019. Bilateral lower extremity venous duplex from 01/06/2018 TECHNIQUE: Utilizing real-time ultrasonic imaging multiple real time high-resolution ultrasonic images with compression and noncompression maneuvers of the deep venous system in addition to color doppler and spectral profile analysis were performed from the common femoral vein through the proximal calf veins. FINDINGS: Right: There is normal compressibility of the deep venous system from the common femoral vein, greater saphenous vein at the saphenous femoral junction, femoral vein, deep femoral vein, and popliteal vein. Color flow is seen in the proximal calf veins. Evaluation of the calf veins is limited by edema. Superficial vein thrombus is noted within the calf varicosities. Right distal thigh and calf varicose veins are noted. Left: There is normal compressibility of the deep venous system from the common femoral vein, greater saphenous vein at the saphenous femoral junction, femoral vein, deep femoral vein, and popliteal vein. Evaluation of the calf veins is limited by edema. Varicose veins are seen at the calf. Superficial calcifications are seen in the left calf. Procedure Note Interface, Received Via [employer] - 06/22/2019 3:37 PM EST Exam: Bilateral lower extremity real-time compression venous ultrasound with Color Doppler imaging. History: Swelling. COMPARISON: Right Lower extremity venous duplex from 11/25/2018. Chest radiograph from 06/22/2019. Bilateral lower extremity venous duplex from 2017 TECHNIQUE: Utilizing real-time ultrasonic imaging multiple real time high- resolution ultrasonic images with compression and noncompression maneuvers of the deep venous system in addition to color doppler and spectral profile analysis were performed from the common femoral vein through the proximal calf veins. FINDINGS: Right: There is normal compressibility of the deep venous system from the common femoral vein, greater saphenous vein at the saphenous femoral junction, femoral vein, deep femoral vein, and popliteal vein. Color flow is seen in the proximal calf veins. Evaluation of the calf veins is limited by edema. Superficial vein thrombus is noted within the calf varicosities. Right distal thigh and calf varicose veins are noted. Left: There is normal compressibility of the deep venous system from the common femoral vein, greater saphenous vein at the saphenous femoral junction, femoral vein, deep femoral vein, and popliteal vein. Evaluation of the calf veins is limited by edema. Varicose veins are seen at the calf. Superficial calcifications are seen in the left calf. Impression: 1. No right or left lower extremity deep venous thrombosis. 2. Superficial thrombosis within the right calf varicose veins. Previously the superficial thrombus was in the right distal calf varicose veins 3. Bilateral lower extremity edema may be related to volume overload. 4. Bilateral lower extremity varicose veins. Performing Organization Address City/State/Zipcode Phone Number [facility] [address] [place] [address] US Doppler Carotid Bilateral Complete (CC) (06/22/2019 2:25 PM EST) Specimen Impressions Performed At Impression: [facility] 1. No focal significant stenosis is identified. 2. A pulsus bisferiens is noted in the bilateral common carotid and internal carotid arteries. Correlate for any history of cardiomyopathy, aortic regurgitation or aortic stenosis. Stenosis grading based on NASCET criteria. Narrative Performed At Exam: Bilateral Carotid Duplex Ultrasound. [facility] History: Syncope and collapse Comparison: CT of the cervical spine from 11/09/2018 Technique: Multiple real-time high resolution sonographic images were performed from the clavicles through the base of the skull bilaterally evaluating the extracranial cerebrovascular circulation. Real time ultrasonic imaging, color Doppler, and duplex Doppler imaging was performed in addition to generation of velocity spectral profiles. Right: The right common carotid artery is patent and shows mild atherosclerotic disease at the bulb. A pulsus bisferiens is noted in the common carotid and internal carotid artery. Normal velocities are seen t hroughout the visualized vasculature with no evidence of focal significant stenosis. Vertebral artery flow is antegrade. Soft tissues are unremarkable. Velocities: Proximal common carotid artery peak systolic velocity of 64 cm/s and end- diastolic velocity of 9 cm/s Mid common carotid peak systolic velocity of 66 cm/s and end-diastolic velocity 7 cm/s. Distal common carotid artery peak systolic velocity of 82 cm/s and end- diastolic velocity of 11 cm/s Proximal internal carotid artery peak systolic velocity of 65 cm/s and end- diastolic velocity of 9 cm/s Mid internal carotid artery peak systolic velocity of 87 cm/s and end- diastolic velocity of 20 cm/s Distal internal carotid artery peak systolic velocity of 70 cm/s and end- diastolic velocity of 10 cm/s Right peak systolic velocity ICA/CCA ratio of 1.1 External carotid artery peak systolic velocity of 83 cm/s. Vertebral peak systolic velocity of 38 cm/s. Left: Moderate calcified atherosclerotic disease is seen at the carotid bulb. A pulsus bisferiens is noted in the common carotid and internal carotid artery. Normal velocities are seen throughout the visualiz ed vasculature with no evidence of significant stenosis. Vertebral artery flow is antegrade. Soft tissues are unremarkable. Velocities: Proximal common carotid artery peak systolic velocity of 96 cm/s and end- diastolic velocity of 10 cm/s Mid common carotid artery systolic velocity 102 cm/s and end-diastolic velocity of 13 cm/s Distal common carotid artery peak systolic velocity of 75 cm/s and end- diastolic velocity of 9 cm/s Proximal internal carotid artery peak systolic velocity of 46 cm/s and end- diastolic velocity of 13 cm/s Mid internal carotid artery peak systolic velocity of 112 cm/s and end- diastolic velocity of 35 cm/s Distal internal carotid artery peak systolic velocity of 87 cm/s and end- diastolic velocity of 20 cm/s Left peak systolic velocity ICA/CCA ratio of 1.1 External carotid artery peak systolic velocity of 94 cm/s. Vertebral peak systolic velocity of 37 cm/s. Procedure Note Interface, Received Via [facility] - 06/22/2019 3:51 PM EST Exam: Bilateral Carotid Duplex Ultrasound. History: Syncope and collapse Comparison: CT of the cervical spine from 11/09/2018 Technique: Multiple real-time high resolution sonographic images were performed from the clavicles through the base of the skull bilaterally evaluating the extracranial cerebrovascular circulation. Real time ultrasonic imaging, color Doppler, and duplex Doppler imaging was performed in addition to generation of velocity spectral profiles. Right: The right common carotid artery is patent and shows mild atherosclerotic disease at the bulb. A pulsus bisferiens is noted in the common carotid and internal carotid artery. Normal velocities are seen throughout the visualized vasculature with no evidence of focal significant stenosis. Vertebral artery flow is antegrade. Soft tissues are unremarkable. Velocities: Proximal common carotid artery peak systolic velocity of 64 cm/s and end- diastolic velocity of 9 cm/s Mid common carotid peak systolic velocity of 66 cm/s and end-diastolic velocity 7 cm/s. Distal common carotid artery peak systolic velocity of 82 cm/s and end- diastolic velocity of 11 cm/s Proximal internal carotid artery peak systolic velocity of 65 cm/s and end- diastolic velocity of 9 cm/s Mid internal carotid artery peak systolic velocity of 87 cm/s and end- diastolic velocity of 20 cm/s Distal internal carotid artery peak systolic velocity of 70 cm/s and end- diastolic velocity of 10 cm/s Right peak systolic velocity ICA/CCA ratio of 1.1 External carotid artery peak systolic velocity of 83 cm/s. Vertebral peak systolic velocity of 38 cm/s. Left: Moderate calcified atherosclerotic disease is seen at the carotid bulb. A pulsus bisferiens is noted in the common carotid and internal carotid artery. Normal velocities are seen throughout the visualized vasculature with no evidence of significant stenosis. Vertebral artery flow is antegrade. Soft tissues are unremarkable. Velocities: Proximal common carotid artery peak systolic velocity of 96 cm/s and end- diastolic velocity of 10 cm/s Mid common carotid artery systolic velocity 102 cm/s and end-diastolic velocity of 13 cm/s Distal common carotid artery peak systolic velocity of 75 cm/s and end- diastolic velocity of 9 cm/s Proximal internal carotid artery peak systolic velocity of 46 cm/s and end- diastolic velocity of 13 cm/s Mid internal carotid artery peak systolic velocity of 112 cm/s and end- diastolic velocity of 35 cm/s Distal internal carotid artery peak systolic velocity of 87 cm/s and end- diastolic velocity of 20 cm/s Left peak systolic velocity ICA/CCA ratio of 1.1 External carotid artery peak systolic velocity of 94 cm/s. Vertebral peak systolic velocity of 37 cm/s. Impression: 1. No focal significant stenosis is identified. 2. A pulsus bisferiens is noted in the bilateral common carotid and internal carotid arteries. Correlate for any history of cardiomyopathy, aortic regurgitation or aortic stenosis. Stenosis grading based on NASCET criteria. Performing Organization Address City/State/Zipcode Phone Number [facility] [address] [place] [address] Troponin T (06/22/2019 12:30 PM EST) Troponin T <0.01 <0.01 ng/mL [facility] at Specimen Plasma Performing Organization Address City/State/Zipcode Phone Number [facility] AT [address] [address] [facility] at [address] [place] [address] XR Chest Frontal and Lateral (06/22/2019 7:38 AM EST) Specimen Narrative Performed At PROCEDURE INFORMATION: [facility] Exam: XR Chest, 2 Views Exam date and time: 06/22/2019 7:18 AM Age: 64 years old Clinical indication: Shortness of breath; Additional info: Concern for pulmonary edema TECHNIQUE: Imaging protocol: XR of the chest Views: 2 views. COMPARISON: CR XR CHEST FRONTAL ONLY [id number] 11/09/2018 7:54 AM FINDINGS: Lungs: Unremarkable. No consolidation. Pleural space: Unremarkable. No pleural effusion. No pneumothorax. Heart/Mediastinum: Cardiomegaly with mild vascular congestion. Median sternotomy. Bones/joints: Unremarkable. IMPRESSION: Cardiomegaly with mild vascular congestion. Median sternotomy. THIS DOCUMENT HAS BEEN ELECTRONICALLY SIGNED BY KRISTIN DE LA TORRE MD Procedure Note Interface, Received Via [facility] - 06/22/2019 7:41 AM EST PROCEDURE INFORMATION: Exam: XR Chest, 2 Views Exam date and time: 06/22/2019 7:18 AM Age: 64 years old Clinical indication: Shortness of breath; Additional info: Concern for pulmonary edema TECHNIQUE: Imaging protocol: XR of the chest Views: 2 views. COMPARISON: CR XR CHEST FRONTAL ONLY [id number] 11/09/2018 7:54 AM FINDINGS: Lungs: Unremarkable. No consolidation. Pleural space: Unremarkable. No pleural effusion. No pneumothorax. Heart/Mediastinum: Cardiomegaly with mild vascular congestion. Median sternotomy. Bones/joints: Unremarkable. IMPRESSION: Cardiomegaly with mild vascular congestion. Median sternotomy. THIS DOCUMENT HAS BEEN ELECTRONICALLY SIGNED BY KRISTIN DE LA TORRE MD Performing Organization Address City/State/Zipcode Phone Number [facility] [address] [place] [address] POCT i-STAT Troponin (06/22/2019 7:19 AM EST) i-STAT Troponin I 0.03 0.00 - 0.08 ng/mL [facility] POC Specimen Whole Blood Performing Organization Address [facility] Phone Number POINT OF CARE TEST [address] [place] [address] [facility] [address] [place] [address] CT Head without Contrast (06/22/2019 7:13 AM EST) Specimen Narrative Performed At PROCEDURE INFORMATION: [facility] Exam: CT Head Without Contrast Exam date and time: 06/22/2019 7:13 AM Age: 64 years old Clinical indication: Altered mental status/memory loss; Additional info: AMS and fall TECHNIQUE: Imaging protocol: Computed tomography of the head without contrast. Radiation optimization: All CT scans at this facility use at least one of these dose optimization techniques: automated exposure control; mA and/or kV adjustment per patient size (includes targeted exams where dose is matched to clinical indication); or iterative reconstruction. COMPARISON: CT HEAD WITHOUT CONTRAST [id number] 11/09/2018 7:45 AM FINDINGS: Brain: Normal. No hemorrhage. Unremarkable white matter. No mass effect. Ventricles: Normal. No ventriculomegaly. Bones/joints: Unremarkable. No acute fracture. Sinuses: Maxillary sinusitis. Mastoid air cells: Visualized mastoid air cells are well aerated. Soft tissues: Unremarkable. IMPRESSION: No acute intracranial abnormality. Maxillary sinusitis. THIS DOCUMENT HAS BEEN ELECTRONICALLY SIGNED BY KRISTIN DE LA TORRE MD Procedure Note Interface, Received Via [facility] - 06/22/2019 7:21 AM EST PROCEDURE INFORMATION: Exam: CT Head Without Contrast Exam date and time: 06/22/2019 7:13 AM Age: 64 years old Clinical indication: Altered mental status/memory loss; Additional info: AMS and fall TECHNIQUE: Imaging protocol: Computed tomography of the head without contrast. Radiation optimization: All CT scans at this facility use at least one of these dose optimization techniques: automated exposure control; mA and/or kV adjustment per patient size (includes targeted exams where dose is matched to clinical indication); or iterative reconstruction. COMPARISON: CT HEAD WITHOUT CONTRAST [id number] 11/09/2018 7:45 AM FINDINGS: Brain: Normal. No hemorrhage. Unremarkable white matter. No mass effect. Ventricles: Normal. No ventriculomegaly. Bones/joints: Unremarkable. No acute fracture. Sinuses: Maxillary sinusitis. Mastoid air cells: Visualized mastoid air cells are well aerated. Soft tissues: Unremarkable. IMPRESSION: No acute intracranial abnormality. Maxillary sinusitis. THIS DOCUMENT HAS BEEN ELECTRONICALLY SIGNED BY KRISTIN DE LA TORRE MD Performing Organization Address City/State/Zipcode Phone Number [facility] [address] [place] [address] TSH (06/22/2019 7:01 AM EST) TSH 4.090 0.270 - 4.200 u[IU]/mL [facility] at Specimen Plasma Performing Organization Address City/State/Zipcode Phone Number [facility] AT [address] [address] [facility] at [address] [address] Salicylate level (06/22/2019 7:01 AM EST) Salicylate <1.0 (L) 3.0 - 30.0 mg/dL [facility] at Specimen Plasma Performing Organization Address City/[facility] Phone Number [facility] AT [address] [address] [phone] [facility] at [address] [address] Ethyl Alcohol Level (06/22/2019 7:01 AM EST) Ethyl Alcohol Negative Negative g/dl [facility] at Specimen Plasma Performing Organization Address City/[facility] Phone Number [facility] AT [address] [address] [facility] at [address] [address] Acetaminophen, Random (06/22/2019 7:01 AM EST) Acetaminophen, <5.0 (L) 10.0 - 30.0 [facility] Random ug/mL [facility] Specimen Plasma Performing Organization Address [facility] Phone Number [facility] AT [address] [address] [phone] [facility] at [address] [address] CBC and Differential (06/22/2019 7:01 AM EST) White Blood Cell 7.5 4 - 10 [facility] 10*3/uL [facility] at Red Blood Cell 4.05 (L) 4.6 - 6.1 [facility] 10*6/uL [facility] at Hemoglobin 12.6 (L) 13.5 - 18 [facility] g/dL [facility] at Hematocrit 36.3 (L) 41 - 53 % [facility] at Mean Cell Volume 89.7 80 - 96 fL [facility] at Mean Cell Hemoglobin 31.0 27 - 33 pg [facility] at Mean Cell Hgb Conc 34.6 32.0 - 36.0 [facility] g/dL [facility] at Red Cell Dist Width 13.4 11.5 - 14.5 % [facility] at Platelet Count 244 150 - 400 [facility] 10*3/uL [facility] at Differential Type Automated Diff [facility] at Neutrophil 66 % [facility] at Lymphocyte 19 % [facility] at Monocyte 11 % [facility] at CG Eosinophil 3 % [facility] Medical [facility] at CG Basophil 1 % [facility] at CG Abs Neutrophil 4.99 1.8 - 7.0 [facility] 10*3/uL [facility] at CG Abs Lymphocyte 1.44 1.2 - 4.0 [facility] 10*3/uL [facility] at CG Abs Monocyte 0.81 (H) 0 - 0.8 [facility] 10*3/uL [facility] at CG Abs Eosinophil 0.21 0 - 0.5 [facility] 10*3/uL [facility] at CG Abs Basophil 0.06 0 - 0.2 [facility] 10*3/uL [facility] at CG Nucleated Red Blood 0 0 - 0 [facility] Cells /100{WBCs} [facility] at CG Specimen EDTA Whole Blood Performing Organization Address City/[facility] Phone Number [facility] AT [place] [phone] [facility] at [address] [address] Basic Metabolic Panel (06/22/2019 7:01 AM EST) Bicarbonate 26 22 - 29 mmol/L [facility] at Chloride 94 (L) 98 - 107 mmol/L [facility] at Creatinine 0.87 0.70 - 1.20 [facility] mg/dL [facility] at Glucose 301 (H) 70 - 140 mg/dL [facility] at Potassium 3.9 3.4 - 5.1 [facility] mmol/L [facility] at Sodium 132 (L) 136 - 145 [facility] mmol/L [facility] at Blood Urea Nitrogen 21 8 - 23 mg/dL [facility] at Anion Gap 12 8 - 15 mmol/L [facility] at Osmolality, Abdiaziz 288 275 - 300 [facility] mosm/kg [facility] at BUN/Cre Ratio 24 [facility] at CG Calcium 9.1 8.8 - 10.2 [facility] mg/dL [facility] at GFR Non 90 >60 [facility] Faroese 2009 CDK-EPI mL/min/1.73m2 [facility] at CG GFR >90 >60 [facility] 2009 CKD-EPI mL/min/1.73m2 [facility] at Specimen Plasma Performing Organization Address City/State/Zipcode Phone Number [facility] AT [facility] [address] [place] [address] [phone] [facility] at [address] [place] [phone] proBNP (06/22/2019 7:01 AM EST) proBNP 75 <125 pg/mL [facility] at Specimen Plasma Performing Organization Address City/[facility]/Zipcode Phone Number [facility] AT [facility] [address] [place] [phone] [facility] at [address] [place] [address] 1ED EKG Interpretation (06/22/2019 5:49 AM EST) Narrative Performed At [facility] EXTERNAL NON-INTERFACED LAB 06/22/2019 5:50 AM 1ED EKG Interpretation Date/Time: 06/22/2019 5:50 AM Performed by: Vlad Driver MD Authorized by: Vlad Driver MD ECG reviewed by ED Physician in the absence of a vat operator: yes Previous ECG: Previous ECG: Compared to current Comparison ECG info: 01/05/2018 Interpretation: Interpretation: abnormal Rate: ECG rate: 89 ECG rate assessment: normal Rhythm: Rhythm: sinus rhythm Comments: No STEMI Performing Organization Address City/[facility] Phone Number EXTERNAL NON-INTERFACED LAB EKG 12-LEAD - CMAXX REPORT (06/22/2019 5:29 AM EST) Narrative Performed At EKG 12-LEAD - CMAXX REPORT (06/22/2019 5:29 AM EST) Narrative Performed At EKG order subsequent to procedure (Acknowledge Only) (06/22/2019 5:29 AM EST) Specimen Narrative Performed At Ventricular Rate: [facility] EKG 89 BPM Atrial Rate: 90 BPM P-R Interval: 170 ms QRS Duration: 112 ms Q-T Interval: 394 ms QTC Calculation(Bazett): 479 ms P Gary: -1 degrees R Gary: -56 degrees T Gary: 61 degrees : NORMAL SINUS RHYTHM WITH BASELINE ARTIFACT : LEFT ANTERIOR FASCICULAR BLOCK : CANNOT RULE OUT ANTEROLATERAL INFARCT , AGE UNDETERMINED : ABNORMAL ECG : WHEN COMPARED WITH ECG OF 05-JAN-2018 19:06, : POSSIBLE ANTEROLATERAL INFARCT IS NOW PRESENT : P WAVE IS INVERTED IN LEAD III : Confirmed by Cale Martin ([id number]) on 06/22/2019 11:18:44 : AM Procedure Note Interface, Received Via [employer] - 06/22/2019 11:18 AM EST Ventricular Rate: 89 BPM Atrial Rate: 90 BPM P-R Interval: 170 ms QRS Duration: 112 ms Q-T Interval: 394 ms QTC Calculation(Bazett): 479 ms P Gary: -1 degrees R Gary: -56 degrees T Gary: 61 degrees : NORMAL SINUS RHYTHM WITH BASELINE ARTIFACT : LEFT ANTERIOR FASCICULAR BLOCK : CANNOT RULE OUT ANTEROLATERAL INFARCT , AGE UNDETERMINED : ABNORMAL ECG : WHEN COMPARED WITH ECG OF 05-JAN-2018 19:06, : POSSIBLE ANTEROLATERAL INFARCT IS NOW PRESENT : P WAVE IS INVERTED IN LEAD III : Confirmed by Cale Martin ([id number]) on 06/22/2019 11:18:44 : AM Performing Organization Address City/State/Zipcode Phone Number [facility] EKG documented in this encounter Visit Diagnoses Diagnosis Syncope - Primary Syncope and collapse Diabetic ulcer of toe of right foot associated with type 2 diabetes mellitus, with necrosis of bone documented in this encounter Administered Medications Medication Order MAR Action Action Date Dose Rate Site acetaminophen (TYLENOL) tablet 650 mg 650 mg, Oral, Every 6 hours PRN, Mild Pain (Pain Scale Score 1-3), Starting Sat06/25/19 at 0913, For 10 days, Maximum daily dose of acetaminophen is 3000 mg from all sources in 24 hours., aspirin chewable tablet 81 mg Given 06/30/2019 8:27 AM EST 81 mg 81 mg, Oral, Daily Standard, First dose on Sat06/23/19 at 0900, For 12 doses Given 06/29/2019 8:07 AM EST 81 mg Given 06/28/2019 7:55 AM EST 81 mg atorvastatin (LIPITOR) tablet 10 mg Given 06/29/2019 9:25 PM EST 10 mg 10 mg, Oral, Every evening, First dose on Sat06/22/19 at 2100, For 30 days Given 06/28/2019 7:53 PM EST 10 mg Given 06/27/2019 9:13 PM EST 10 mg dextrose 50 % IV solution 25 mL 25 mL, Intravenous, PRN, Other, blood glucose <55, Starting Sat06/23/19 at 1206 , For 30 days, Not for midline administration., enoxaparin sodium (LOVENOX) injection 40 mg Given 06/30/2019 8:27 AM EST 40 mg 40 mg, Subcutaneous, Daily Standard, First dose on Sat06/23/19 at 0900, For 30 days Given 06/29/2019 8:07 AM EST 40 mg Given 06/28/2019 7:55 AM EST 40 mg furosemide (LASIX) tablet 40 mg Given 06/30/2019 8:27 AM EST 40 mg 40 mg, Oral, 2 Times Daily, First dose (after last modification) on Sat06/25/19 at 2100, For 30 days Given 06/29/2019 9:25 PM EST 40 mg Given 06/29/2019 8:07 AM EST 40 mg gabapentin (NEURONTIN) capsule 300 mg Given 06/30/2019 8:27 AM EST 300 mg 300 mg, Oral, Three Times Daily Standard, First dose on Sat06/22/19 at 1700, For 30 days Given 06/29/2019 9:25 PM EST 300 mg Given 06/29/2019 5:36 PM EST 300 mg glucagon (human recombinant) (GLUCAGEN) injection 1 mg 1 mg, Intramuscular, PRN, for glucose <55 without IV access, Starting Sat at 1206, For 30 days glucose (GLUTOSE) 40 % oral gel 15 g 15 g, Oral, PRN, Low blood sugar, for gluose 55-69 mg/dl and able to take PO, Starting Sat06/23/19 at 1206, For 30 days HYDROcodone-acetaminophen (LORTAB) 5-325 MG per tablet 1 tablet 1 tablet, Oral, Every 6 hours PRN, Moderate Pain (Pain Scale Score 4-6), Starting Sat06/25/19 at 0913, For 10 days HYDROcodone-acetaminophen (LORTAB) 5-325 Given 06/27/2019 1:00 AM EST 2 tablets MG per tablet 2 tablet 2 tablet, Oral, Every 6 hours PRN, Severe Pain (Pain Scale Score 7-10), Starting Sat06/25/19 at 0913, For 10 days Given 06/26/2019 5:25 AM EST 2 tablets Given 06/25/2019 9:03 PM EST 2 tablets insulin lispro (HumaLOG) injection MEDIUM Given 06/30/2019 8:39 AM EST 4 Units DOSE EATING INSULIN patients 1-16 Units 1-16 Units, Subcutaneous, Three Times Daily-With Meals, First dose (after last modification) on Sat06/26/19 at 0815, For 30 days, Nursing MUST open the 'SQ Insulin Dosing Charts' Sidebar Report, or, the Patient Summary or Summary Report within the ED. , Given 06/29/2019 5:36 PM EST 8 Units Given 06/29/2019 12:51 PM EST 5 Units insulin NPH-insulin regular Given 06/30/2019 8:27 AM EST 40 Units (HumuLIN/NovoLIN 70-30) injection 40 Units 40 Units, Subcutaneous, Two times daily before breakfast and dinner, First dose on Sat06/22/19 at 1730, For 25 doses Given 06/29/2019 5:36 PM EST 40 Units Given 06/29/2019 8:07 AM EST 40 Units metoprolol (TOPROL-XL) 24 hr tablet 75 mg Given 06/30/2019 8:27 AM EST 75 mg 75 mg, Oral, Daily Standard, First dose (after last modification) on Marilu 06/25/19 at 0900, For 28 doses, Do not crush or chew, Given 06/28/2019 7:55 AM EST 75 mg Given 06/27/2019 8:12 AM EST 75 mg polyethylene glycol (MIRALAX) packet 17 g Given 06/30/2019 8:27 AM EST 17 g 17 g, Oral, Daily Standard, First dose on Sat06/26/19 at 0900, For 30 days, Mix in 8 ounces of water, juice or milk. Avoid use in patients who require thickened liquids due to potential increased risk for aspiration., Given 06/29/2019 8:07 AM EST 17 g Given 06/28/2019 7:55 AM EST 17 g ropinirole (REQUIP) tablet 1 mg Given 06/29/2019 9:25 PM EST 1 mg 1 mg, Oral, Nightly, First dose (after last modification) on Sat06/22/19 at 2200, For 13 doses Given 06/28/2019 7:53 PM EST 1 mg Given 06/27/2019 9:13 PM EST 1 mg Medication Order MAR Action Action Date Dose Rate Site furosemide (LASIX) injection 20 mg Given 06/22/2019 9:07 AM EST 20 mg 20 mg, Given by IV, Once, Sat06/22/19 at 0845, For 1 dose furosemide (LASIX) injection 20 mg New Bag 06/23/2019 10:00 AM EST 20 mg 20 mg, Intravenous, 2 Times Daily, First dose on Sat06/22/19 at 1800, For 7 doses 06/22/2019 5:17 PM EST 20 mg furosemide (LASIX) injection 20 mg 06/24/2019 5:04 PM EST 20 mg 20 mg, Intravenous, 2 Times Daily, First dose (after last modification) on Sat06/24/19 at 1800, For 5 doses furosemide (LASIX) injection 40 mg 06/24/2019 9:45 AM EST 40 mg 40 mg, Intravenous, 2 Times Daily, First dose (after last modification) on Sat06/23/19 at 1800, For 7 doses 06/23/2019 5:46 PM EST 40 mg insulin lispro (HumaLOG) injection LOW DOSE Given 06/25/2019 5:39 PM EST 5 Units EATING INSULIN patients 1-8 Units 1-8 Units, Subcutaneous, Three Times Daily-With Meals, First dose on Sat06/23/19 at 1300, For 30 days, Nursing MUST open the 'SQ Insulin Dosing Charts' Sidebar Report, or, the Patient Summary or Summary Report within the ED. , Given 06/25/2019 12:50 PM EST 5 Units Left Arm Given 06/25/2019 10:08 AM EST 4 Units linezolid (ZYVOX) 600 MG/300ML 06/27/2019 11:28 PM EST 600 mg 300 mL/hr IVPB (premix) 600 mg 600 mg, Intravenous, Administer over 60 Minutes, Every 12 hours, First dose on Sat06/25/19 at 1000, For 7 days 06/27/2019 11:43 AM EST 600 mg 300 mL/hr 06/26/2019 10:31 PM EST 600 mg 300 mL/hr lisinopril (PRINIVIL,ZESTRIL) tablet 10 mg Given 06/24/2019 9:45 AM EST 10 mg 10 mg, Oral, Daily Standard, First dose on Sat06/23/19 at 0900, For 30 days, Check vital signs before administering, Given 06/23/2019 10:00 AM EST 10 mg metoprolol (TOPROL-XL) 24 hr tablet 50 mg Given 06/24/2019 9:45 AM EST 50 mg 50 mg, Oral, Daily Standard, First dose on Sat06/23/19 at 0900, For 30 days, Do not crush or chew, Given 06/23/2019 10:54 AM EST 50 mg piperacillin-tazobactam (ZOSYN) New Bag 06/28/2019 6:14 PM 3.375 g 12.5 mL /hr IVPB 3.375 g (premix) EST 3.375 g, Intravenous, Administer over 4 Hours, Every 8 hours, First dose on Sat06/25/19 at 1000, For 7 days New Bag 06/28/2019 10:46 AM EST 3.375 g 12.5 mL/hr New Bag 06/28/2019 2:10 AM EST 3.375 g 12.5 mL/hr piperacillin-tazobactam (ZOSYN) New Bag 06/29/2019 6:04 AM 3.375 g 100 mL/ hr IVPB 3.375 g (premix) EST 3.375 g, Intravenous, Administer over 0.5 Hours, Every 6 hours, First dose (after last modification) on Sat06/29/19 at 0015, For 4 days New 06/29/2019 12:10 AM EST 3.375 g 100 mL/hr documented in this encounter Additional Health Concerns Infection Noted Time Resolved Time MRSA (Methicillin Resistant Staphylococcus 12/26/2015 10:09 AM EDT aureus) documented as of this encounter
[2019-08-01 09:33] VITALS: BP 138/76
--- NOTE | 2019-08-01 10:02 | UC ---
Eye Complaint HPI - HPI Summary HPI Summary: Per human resources benefits specialist: "redness in right eye, started last night" -no FB. not painfu; + mild watery dc. not crustes shut this AM +has slight runny nose. - History of Current Complaint Chief Complaint: UCEye Stated Complaint: RT EYE COMPLAINT Pain Intensity: 2 - Allergies/Home Medications Allergies/Adverse Reactions: Allergies Allergy/AdvReac Type Severity Reaction Status Date / Time No Known Allergies Allergy Verified 08/01/19 09:33 Home Medications: Home Medications Aspirin [Zack Aspirin EC Low Dose 81 MG] 81 mg PO DAILY 08/01/19 [History Confirmed 08/01/19] Dapagliflozin 10 mg Tab (Nf) [Farxiga] 10 mg PO DAILY 08/01/19 [History Confirmed 08/01/19] Docusate Sodium [Stool Softener] 50 mg PO ONCE 08/01/19 [History Confirmed 08/01] Furosemide 40 mg PO BID 08/01/19 [History Confirmed 08/01/19] Gabapentin CAP(*) [Neurontin 300 CAP(*)] 300 mg PO TID 08/01/19 [History Confirmed 08/01/19] Insulin Aspart Prot/Insuln Asp [Novolog Mix 70-30 10 ml Vial] 0 units SUBCUT TID 08/01/19 [History Confirmed 08/01/19] Lisinopril [Zestril] 10 mg PO DAILY 08/01/19 [History Confirmed 08/01/19] Metformin HCl 1,000 mg PO BID 08/01/19 [History Confirmed 08/01/19] Metoprolol Succinate 50 mg PO BID 08/01/19 [History Confirmed 08/01/19] Ropinirole HCl [Requip Xl] 12 mg PO BID 08/01/19 [History Confirmed 08/01/19] Silver Sulfadiazine 1%* [SILVadine 1%*] 1 applic TOPICAL DAILY 08/01/19 [ History Confirmed 08/01/19] glipiZIDE [Glipizide] 5 mg PO DAILY 08/01/19 [History Confirmed 08/01/19] PMH/Surg Hx/FS Hx/Imm Hx Endocrine History: Diabetes - Surgical History Surgical History: Yes Surgery Procedure, Year, and Place: artificial aortic valve and aneurysm repair 1996. cardiac ablation 2005. 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 Negative: Sore Throat, Ear Ache Respiratory: Positive: Negative. Negative: Shortness Of Breath, Cough Cardiovascular: Positive: Negative. Negative: Palpitations, Chest Pain Gastrointestinal: Positive: Negative Genitourinary: Positive: Negative Is Patient Immunocompromised?: No Physical Exam Triage Information Reviewed: Yes Appearance: Well-Appearing, No Pain Distress, Well-Nourished Vital Signs: Initial Vital Signs Temp 98.5 F 08/01/19 09:27 Pulse 83 08/01/19 09:27 Resp 18 08/01/19 09:27 BP 138/76 08/01/19 09:27 Pulse Ox 98 08/01/19 09:27 Eyes: Positive: Conjunctiva Inflamed - minimal on rt. No FB. no hyphema. EOMI, PERRL. mild thin clear dc. no crusting ENT: Positive: Pharynx normal, Nasal congestion, TMs normal Neck exam: Normal Neck: Positive: Supple, Nontender, No Lymphadenopathy Respiratory Exam: Normal Respiratory: Positive: Lungs clear, Normal breath sounds, No respiratory distress, No accessory muscle use Cardiovascular Exam: Normal Eye Complaint Course/Dx - Course Course Of Treatment: very mild rt viral [id number] w/ Sx x 15 hrs. - Differential Dx/Diagnosis Differential Diagnosis/HQI/PQRI: Conjunctivitis, Corneal Abrasion Provider Diagnosis: Conjunctivitis Discharge ED - Sign-Out/Discharge Documenting (check all that apply): Patient Departure All imaging exams completed and their final reports reviewed: No Studies - Discharge Plan Condition: Stable Disposition: HOME Patient Education Materials: Conjunctivitis (ED) Referrals: Husam Ramsay MD [Primary Care Provider] - 5 Days Additional Instructions: The conjunctivitis is very likely to be viral and therefore does not need bacterial eye drops at this time. I recommend that you buy OTC brand either "Refresh PM" or "systane" brand eye drops that you can use every 2-3 hrs to help soothe your eye until the symptoms resolve. You should be seen sooner if your symptoms worsen or do not go away. - Billing Disposition and Condition Condition: STABLE Disposition: Home
== END 2019-08-01 10:16 | disposition home or self-care (01) ==
LOC: UCCORT 09:17
DX: H10.9 Unspecified conjunctivitis (principal); R09.81 Nasal congestion; E11.9 Type 2 diabetes mellitus without complications; Z79.82 Long term (current) use of aspirin; Z79.4 Long term (current) use of insulin
CPT/HCPCS: 99212; G0463

== ENCOUNTER 2019-08-03 11:38 | Emergency (ER) | payer MEDICARE ==
[2019-08-03 12:34] VITALS: BP 123/64
[2019-08-03] MEDS ORDERED: Tetracaine 0.5% OPTH.SOL 4 ML* 1 DROP BTL RIGHT EYE ONE (12:46)
[2019-08-03] MEDS ORDERED: Fluorescein Sodium TOPICAL* 1 MG TEST STRIP OPHTHALMIC ONE (12:46)
--- NOTE | 2019-08-03 13:18 | UC ---
Eye Complaint HPI - HPI Summary HPI Summary: Patient is a 64yo male presenting with right eye redness and foreign body sensation x2-3 days. Patient states he was seen here 2 days ago and diagnosed with viral conjunctivitis. States using otc systane drops as directed without any relief. Patient states symptoms are the same as two days ago and that foreign body sensation is worse at night when closing his eyes. Describes feeling "like a stone in his eye." Denies photophobia, discharge, and pain with eye movement. Notes current runny nose. Denies fever and chills. Denies left eye symptoms. Denies contact lens use. - History of Current Complaint Chief Complaint: UCEye Stated Complaint: RIGHT EYE COMPLAINT Hx Obtained From: Patient Pain Intensity: 6 Pain Scale Used: 0-10 Numeric - Allergies/Home Medications Allergies/Adverse Reactions: Allergies Allergy/AdvReac Type Severity Reaction Status Date / Time No Known Allergies Allergy Verified 08/03/19 12:25 Home Medications: Home Medications Aspirin [Zack Aspirin EC Low Dose 81 MG] 81 mg PO DAILY 08/01/19 [History Confirmed 08/03/19] Dapagliflozin 10 mg Tab (Nf) [Farxiga] 10 mg PO DAILY 08/01/19 [History Confirmed 08/03/19] Docusate Sodium [Stool Softener] 50 mg PO ONCE 08/01/19 [History Confirmed 08/03] Furosemide 40 mg PO BID 08/01/19 [History Confirmed 08/03/19] Gabapentin CAP(*) [Neurontin 300 CAP(*)] 300 mg PO TID 08/01/19 [History Confirmed 08/03/19] Insulin Aspart Prot/Insuln Asp [Novolog Mix 70-30 10 ml Vial] 0 units SUBCUT TID 08/01/19 [History Confirmed 08/03/19] Lisinopril [Zestril] 10 mg PO DAILY 08/01/19 [History Confirmed 08/03/19] Metformin HCl 1,000 mg PO BID 08/01/19 [History Confirmed 08/03/19] Metoprolol Succinate 50 mg PO BID 08/01/19 [History Confirmed 08/03/19] Ropinirole HCl [Requip Xl] 12 mg PO BID 08/01/19 [History Confirmed 08/03/19] Silver Sulfadiazine 1%* [SILVadine 1%*] 1 applic TOPICAL DAILY PRN 08/01/19 [ History Confirmed 08/03/19] glipiZIDE [Glipizide] 5 mg PO DAILY 08/01/19 [History Confirmed 08/03/19] Propylene Glycol/Peg 400/Pf [Systane Ultra 0.4-0.3% Eye Drp] 1 drop RIGHT EYE Q15M PRN 08/03/19 [History Confirmed 08/03/19] PMH/Surg Hx/FS Hx/Imm Hx Endocrine History: Diabetes Cardiovascular History: Hypertension - Surgical History Surgical History: Yes Surgery Procedure, Year, and Place: artificial aortic valve and aneurysm repair 1996. cardiac ablation 2005. 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 Negative: Blurred Vision, Diplopia, Drainage, Photophobia ENT: Positive: Nasal Discharge Respiratory: Positive: Negative Cardiovascular: Positive: Negative Gastrointestinal: Positive: Negative Musculoskeletal: Positive: Negative Neurological/Mental Status: Positive: Negative Physical Exam - Summary Physical Exam Summary: Vital Signs Reviewed: Yes A+Ox3, no distress Eyes: minimal redness of right conjunctiva with follicular appearance tarsal conjunctiva, tearing noted of right eye, no discharge or crusting. left conjunctiva clear, PERRLA, EOM intact and full. fluorescein stain did not reveal any foreign bodies, ulcerations, or abrasions. ENT: Hearing grossly normal neck: supple Respiratory: Positive: No respiratory distress, No accessory muscle use Cardiovascular: skin color reflect adequate perfusion Musculoskeletal Exam: PAGAN x 4 without difficulty Neurological: Positive: Alert, ambulatory without difficulty Psychological: Positive: age appropriate behavior Skin: Positive: no rash, no ecchymosis Vital Signs: Initial Vital Signs Temp 98 F 08/03/19 12:21 Pulse 77 08/03/19 12:21 Resp 18 08/03/19 12:21 BP 123/64 08/03/19 12:21 Pulse Ox 97 08/03/19 12:21 Eye Complaint Course/Dx - Course Course Of Treatment: Patient presenting 2 days after diagnosis of right eye viral conjunctivitis without improvement of foreign body sensation. Fluorescein stain and examination WNL. Educated patient on viral conjunctivitis, expected duration of symptoms, and symptomatic treatment. Instructed to follow up with pcp or ophthalmology if needed. Patient voiced understanding and agreed with treatment plan. Discharge ED - Discharge Plan Condition: Stable Disposition: HOME Patient Education Materials: Conjunctivitis (ED) Referrals: Husam Ramsay MD [Primary Care Provider] - If Needed Additional Instructions: As discussed, no foreign bodies were found in your eye today. Your conjunctivitis is likely viral. It may persist for 1-2 weeks but should resolve without treatment. You may continue with Systane drops or any over the counter anti itch eye drop, such as Zaditor, Alaway, or Claritin Eye. Follow up with your primary care provider or the ophthalmology referral listed below if symptoms do not resolve within 14 days. - Billing Disposition and Condition Condition: STABLE Disposition: Home
== END 2019-08-03 13:54 | disposition home or self-care (01) ==
LOC: UCCORT 11:38
DX: B30.9 Viral conjunctivitis, unspecified (principal); R09.89 Other specified symptoms and signs involving the circulatory and respiratory systems; E11.9 Type 2 diabetes mellitus without complications; I10 Essential (primary) hypertension; Z79.82 Long term (current) use of aspirin; Z79.899 Other long term (current) drug therapy
CPT/HCPCS: 99212; A9270-GY; G0463

== ENCOUNTER 2021-03-21 09:47 | Observation (INO) ==
[~2021-03-21 09:47] MED LIST: Buffered Lidocaine 1% SYRIN 1 ml INTRADERM ONE; Lactated Ringers 1000 ml BAG 1,000 ML IV SCH; Naloxone 0.4 mg VIAL 0.4 mg/ml 1 ml VIAL IV PRN; Prochlorperazine 5 mg/ml 2 ml VIAL (10 mg) IV PRN; diPHENhydraMINE IV 50 MG/ML 1 ml VIAL (BENADRYL) IV PRN
[2021-03-21] MEDS ORDERED: ceFAZolin 1 GM ADVAN 1 GM ADDV.VIAL IVPB ONE (10:12)
[2021-03-21] MEDS ORDERED: ceFAZolin 2 GM in NS PREMIX 2 GM/100 ML BAG IVPB ONE (10:12)
[2021-03-21] MEDS ORDERED: Buffered Lidocaine 1% SYRIN 1 ml INTRADERM ONE (10:12)
[2021-03-21] MEDS ORDERED: Midazolam 2 mg/2 ml VIAL 1 mg/ml 2 ml VIAL (2 mg) ONE (10:58)
[2021-03-21] MEDS ORDERED: fentaNYL 250 mcg/5 ml 50 MCG/ML 5 ml VIAL (250 MCG) ONE (10:58)
[2021-03-21] MEDS ORDERED: ROPIVACAINE 5 MG/ML 30 ML BTL (0.5%) ONE (10:58)
[2021-03-21] MEDS ORDERED: Lidocaine 1% w EPI 1:200,000 SDV 30 ML VIAL ONE (11:13)
[2021-03-21] MEDS ORDERED: Rocuronium 50 mg VIAL 10 mg/ml 5 ml VIAL (50 mg) ONE ×2 (11:15→14:31)
[2021-03-21] MEDS ORDERED: Dexamethasone IV 4 MG/ML VIAL 1 ml VIAL ONE (11:15)
[2021-03-21] MEDS ORDERED: Propofol 10 MG/ML 20 ML BTL ONE (11:15)
[2021-03-21] MEDS ORDERED: Ondansetron 4 mg VIAL 2 MG/ML 2 ml VIAL ONE (11:15)
[2021-03-21] MEDS ORDERED: Lidocaine 2% PF 5 ML VIAL ONE (11:15)
[2021-03-21] MEDS ORDERED: Phenylephrine IV 10 MG/ML 1 ml VIAL ONE (11:19)
[2021-03-21] MEDS ORDERED: EPHEDrine (Pressors) 50 MG/ML VIAL ONE (13:34)
[2021-03-21] MEDS ORDERED: Glycopyrrolate IV 0.2 MG/ML 1 ML VIAL ONE (13:36)
[2021-03-21] MEDS ORDERED: Sugammadex 500 MG/5 ML 5 ml VIAL IV PUSH ONE (15:09)
[2021-03-21] MEDS ORDERED: oxyCODONE/Acetamin 5/325 mg TAB PO PRN ×2 (17:32)
[2021-03-21] MEDS ORDERED: Ondansetron 4 mg VIAL 2 MG/ML 2 ml VIAL IV PRN (17:32)
[2021-03-21] MEDS ORDERED: diPHENhydraMINE IV 50 MG/ML 1 ml VIAL (BENADRYL) IV PRN (17:32)
[2021-03-21] MEDS ORDERED: Morphine 10 MG/ML VIAL (1 ml) IV PRN (17:32)
[2021-03-21] MEDS ORDERED: Dextrose 50% Syringe 50 ml 25 GM/50 ML SYRINGE IV PUSH PRN (17:40)
[2021-03-21] MEDS ORDERED: Lactated Ringers 1000 ml BAG 1,000 ML IV SCH (18:00)
[2021-03-21] MEDS ORDERED: Insulin ISOPH/REG 70/30 SUBCUT SCH (21:00)
[2021-03-21] MEDS ORDERED: Furosemide 20 mg/2 ml IV VIAL IV SLOW PU ONE (22:00)
[2021-03-21 22:20] LABS: ABS Lymphocytes 0.3 10^3/ul (1.0-4.8); ABS Monocytes 0.2 10^3/ul (0-0.8); ABS Neutrophils 9.1 10^3/ul (1.5-7.7); Eosinophil % 0.1 %; Hematocrit 39 % (42-52); Hemoglobin 13.4 g/dL (14.0-18.0); Lymphocyte % 3.6 %; Mean Corpuscular HGB Conc 34 g/dL (31-36); Mean Corpuscular Hemoglobin 31 pg (27-31); Mean Corpuscular Volume 91 fL (80-94); Mean Platelet Volume 7.6 fL (7.4-10.4); Platelet Count 211 10^3/uL (150-450); Red Blood Count 4.33 10^6 /uL (4.18-5.48); Red Cell Distribution Width 14 % (10-15); White Blood Count 9.6 10^3/uL (3.5-10.8)
[2021-03-21 22:35] LABS: Calcium 8.7 mg/dL (8.6-10.3)
[2021-03-21 22:38] LABS: Potassium 5.5 mmol/L (3.5-5.0)
[2021-03-21] MEDS ORDERED: Iodixanol (CONTRAST) 320 MG/ML 100 ML SDV IV ONE (23:03)
[2021-03-22] MEDS ORDERED: Sodium Polystyrene ORAL.SUSP 15 GM/60 ML BTL PO ONE (00:13)
[2021-03-22] MEDS ORDERED: NS 0.9% 1000 ml BAG 1,000 ML IV SCH (02:15)
[2021-03-22] MEDS ORDERED: cefTRIAXone 2 GM ADDV.VIAL 2 GM in NS 0.9% 100 ml BAG 100 ML IV SCH (03:00)
[2021-03-22] MEDS ORDERED: Azithromycin 500 mg/250 ml NS 500 MG/250 ML BAG IVPB SCH (03:00)
[2021-03-22 06:06] LABS: ABS Lymphocytes 0.8 10^3/ul (1.0-4.8); ABS Monocytes 0.7 10^3/ul (0-0.8); ABS Neutrophils 9.4 10^3/ul (1.5-7.7); Eosinophil % 0.1 %; Hematocrit 34 % (42-52); Hemoglobin 11.4 g/dL (14.0-18.0); Lymphocyte % 6.9 %; Mean Corpuscular HGB Conc 34 g/dL (31-36); Mean Corpuscular Hemoglobin 31 pg (27-31); Mean Corpuscular Volume 92 fL (80-94); Mean Platelet Volume 7.2 fL (7.4-10.4); Platelet Count 186 10^3/uL (150-450); Red Blood Count 3.69 10^6 /uL (4.18-5.48); Red Cell Distribution Width 14 % (10-15); White Blood Count 10.9 10^3/uL (3.5-10.8)
[2021-03-22 06:27] LABS: Calcium 7.2 mg/dL (8.6-10.3); Potassium 4.1 mmol/L (3.5-5.0)
[2021-03-22] MEDS ORDERED: Furosemide 40 mg/4 ml IV VIAL IV SLOW PU SCH (08:00)
[2021-03-22] MEDS ORDERED: Empaglifozin 10 mg TAB (NF) PO SCH (09:00)
[2021-03-22] MEDS ORDERED: Docusate LIQ 100 MG/10 ML UDC PO SCH (09:00)
[2021-03-22] MEDS ORDERED: Aspirin EC 81 mg TAB.EC (enteric coated) PO SCH (09:00)
[2021-03-22 11:42] VITALS: BP 116/55
[2021-03-23] MEDS ORDERED: Dulaglutide (NF) 1.5 MG/0.5 ML SYRINGE SUBCUT SCH (09:00)
== END 2021-03-22 19:15 | disposition home or self-care (01) ==
LOC: OR 09:47 → SSU 17:32 → INTOOBSV 17:32
PROVIDERS: ADMIT Orthopaedic Surgery Sports Medicine; ATTEND Orthopaedic Surgery Sports Medicine